=== PATIENT | female | born 1970 | race Caucasian/White ===

== ENCOUNTER 2017-07-11 10:44 | Emergency (ER) | payer OTHER ==
[~2017-07-11] VITALS: Ht 180.3 cm; Wt 68.0 kg
[~2017-07-11 10:44] MED LIST: ALBU90OI INH; CEPH500 PO; CODGUAEL PO; IBUP800 PO; Zithromax250 MG PO
[2017-07-11] MEDS ORDERED: IBUP600 PO (11:31)
[2017-07-11] MEDS ORDERED: Zithromax250 MG PO (11:31)
[2017-07-11] MEDS ORDERED: ALBU90OI INH (11:31)
[2017-07-11] MEDS ORDERED: METPRE4DP PO (11:31)
== END 2017-07-11 11:54 | disposition home or self-care (01) ==
LOC: ER 10:44
DX: J18.9 Pneumonia, unspecified organism (principal); F17.210 Nicotine dependence, cigarettes, uncomplicated
CPT/HCPCS: 71046; 94640; 99284

== ENCOUNTER 2017-12-15 21:02 | Emergency (ER) | payer OTHER ==
[~2017-12-15] VITALS: Ht 180.3 cm; Wt 72.6 kg
[~2017-12-15 21:02] MED LIST changes: +IBUP600 PO; +METPRE4DP PO
[2017-12-15 22:13] LABS: Influenza A Negative (NEGATIVE); Influenza B Negative (NEGATIVE)
[2017-12-15] MEDS ORDERED: Zithromax250 MG PO (22:20)
== END 2017-12-15 22:25 | disposition home or self-care (01) ==
LOC: ER 21:02
PROVIDERS: Physician Assistant
DX: J18.9 Pneumonia, unspecified organism (principal); Z79.899 Other long term (current) drug therapy; F17.210 Nicotine dependence, cigarettes, uncomplicated
CPT/HCPCS: 71046; 87804; 99283-25

== ENCOUNTER 2018-04-09 22:53 | Emergency (ER) | payer OTHER ==
[~2018-04-09] VITALS: Ht 180.3 cm; Wt 72.6 kg
== END 2018-04-10 02:48 | disposition home or self-care (01) ==
LOC: ER 22:53
DX: B35.3 Tinea pedis (principal); J06.9 Acute upper respiratory infection, unspecified; F17.210 Nicotine dependence, cigarettes, uncomplicated
CPT/HCPCS: 99283

== ENCOUNTER 2018-12-06 21:44 | Emergency (ER) | payer OTHER ==
[~2018-12-06] VITALS: Ht 162.6 cm; Wt 72.6 kg
[2018-12-06 23:32] LABS: Source, Urine Clean Catch
[2018-12-06 23:38] LABS: Bilirubin, Urine Neg (Neg); Blood, Urine 4+ (Neg); Glucose Qualitative, Urine Neg (Neg); Ketones, Urine Neg (Neg); Leukocyte Esterase, Urine 3+ (Neg); Nitrite, Urine Pos (Neg); Protein, Urine 3+ (Neg); Specific Gravity, Urine 1.025 (1.003-1.022); Urobilinogen, Urine NORM (Normal)
[2018-12-06 23:42] LABS: Appearance, Urine Hazy (Clear); Color, Urine Yellow (P-Yellow)
[2018-12-06] MEDS ORDERED: Bactrim Ds Tab1 EACH PO (23:46)
[2018-12-06 23:47] LABS: Bacteria Many /hpf; Red Blood Cells, Urine 0-2 /hpf (0-2); Squamous Epithelial Cells Few /hpf (Few); White Blood Cells, Urine TNTC /hpf (0-5)
== END 2018-12-07 00:06 | disposition home or self-care (01) ==
LOC: ER 21:44
PROVIDERS: Emergency Medicine
DX: B37.41 Candidal cystitis and urethritis (principal); N39.0 Urinary tract infection, site not specified; F17.200 Nicotine dependence, unspecified, uncomplicated
CPT/HCPCS: 81001; 87077; 87086; 87186; 99283

== ENCOUNTER 2019-01-14 00:15 | Emergency (ER) | payer OTHER ==
[~2019-01-14] VITALS: Ht 177.8 cm; Wt 74.8 kg
[~2019-01-14 00:15] MED LIST changes: +Bactrim Ds Tab1 EACH PO
== END 2019-01-14 03:55 | disposition left against medical advice (07) ==
LOC: ER 00:15
DX: Z53.21 Procedure and treatment not carried out due to patient leaving prior to being seen by health care provider (principal)

== ENCOUNTER 2020-08-22 11:32 | Emergency (ER) | payer OTHER ==
[~2020-08-22] VITALS: Ht 177.8 cm; Wt 63.5 kg
[2020-08-22] MEDS ORDERED: CLOBET30L TOP (12:10)
== END 2020-08-22 12:17 | disposition home or self-care (01) ==
LOC: ER 11:32
DX: B35.3 Tinea pedis (principal); I10 Essential (primary) hypertension; F17.200 Nicotine dependence, unspecified, uncomplicated
CPT/HCPCS: 99282

== ENCOUNTER → 2021-01-16 | Outpatient (CLI) | payer OTHER ==
[~2021-01-16] MED LIST changes: +CLOBET30L TOP
[2021-01-16 16:02] LABS: BASOPHILS ABSOLUTE AUTO 0.07 K/mm3 (0.00-0.23); BASOPHILS PERCENT AUTO 1 % (0-2); EOSINOPHILS ABSOLUTE AUTO 0.03 K/mm3 (0.00-0.68); EOSINOPHILS PERCENT AUTO 0 % (0-6); Hematocrit 47.4 % (33.0-51.0); Hemoglobin 16.2 g/dL (11.5-16.0); IMMATURE GRAN ABSOLUTE AUTO 0.04 K/mm3 (0.00-0.10); IMMATURE GRAN PERCENT AUTO 1 % (0-1); LYMPHOCYTES ABSOLUTE AUTO 1.73 K/mm3 (0.84-5.20); LYMPHOCYTES PERCENT AUTO 22 % (21-46); MONOCYTES ABSOLUTE AUTO 0.66 K/mm3 (0.16-1.47); MONOCYTES PERCENT AUTO 8 % (4-13); Mean Corpuscular HGB 32.7 pg (26.0-34.0); Mean Corpuscular HGB Conc 34.2 g/dL (31.5-36.5); Mean Corpuscular Volume 96 fL (80-100); Mean Platelet Volume 9.7 fL (9.1-12.4); NEUTROPHILS ABSOLUTE AUTO 5.46 K/mm3 (1.96-9.15); NEUTROPHILS PERCENT AUTO 68 % (41-73); Platelet Count 309 K/mm3 (150-400); RDW Coefficient Variation 13.8 % (11.7-14.2); RDW Standard Deviation 48.4 fL (35.1-46.3); Red Blood Cell Count 4.96 M/mm3 (3.80-5.20); White Blood Cell Count 7.99 K/mm3 (4.00-11.30)
[2021-01-16 16:11] LABS: Alanine Aminotransfer (ALT/SGP 48 U/L (12-78); Albumin, Blood 3.6 g/dL (3.4-5.0); Albumin/Globulin Ratio 0.9 (0.8-1.8); Alk Phos 156 U/L (40-126); Anion Gap 12 mmol/L (6-16); Aspartate Aminotrans (AST/SGOT 35 U/L (12-37); Bilirubin, Total 1.3 mg/dL (0.1-1.0); Blood Urea Nitrogen 18 mg/dL (8-24); CO2, Blood 27 mmol/L (21-32); Chloride, Blood 102 mmol/L (98-108); Globulin, Blood 3.8 g/dL (2.2-4.0); Glomerular Filtration Rate >60 (60-); Glucose, Blood 112 mg/dL (70-99); Potassium, Blood 3.6 mmol/L (3.5-5.5); Sodium, Blood 141 mmol/L (136-145); Total Protein, Blood 7.4 g/dL (6.4-8.2)
== END | disposition home or self-care (01) ==
LOC: LAB SHORT 15:54 → LAB 15:54
PROVIDERS: Physician Assistant
DX: M25.561 Pain in right knee (principal)
CPT/HCPCS: 80053; 85025

== ENCOUNTER 2021-01-27 23:26 | Emergency (ER) | payer OTHER ==
[~2021-01-27] VITALS: Ht 180.3 cm; Wt 72.6 kg
[2021-01-27] MEDS ORDERED: Lisinopril2.5 MG (23:40)
[2021-01-27] MEDS ORDERED: potassium chloride E (23:40)
[2021-01-27] MEDS ORDERED: FUROSEMIDE20 MG PO (23:40)
[2021-01-27] MEDS ORDERED: Cholecalciferol1 GM MC (23:41)
[2021-01-28 00:17] LABS: BASOPHILS ABSOLUTE AUTO 0.08 K/mm3 (0.00-0.23); BASOPHILS PERCENT AUTO 1 % (0-2); EOSINOPHILS ABSOLUTE AUTO 0.04 K/mm3 (0.00-0.68); EOSINOPHILS PERCENT AUTO 1 % (0-6); Hematocrit 46.6 % (33.0-51.0); Hemoglobin 15.4 g/dL (11.5-16.0); IMMATURE GRAN ABSOLUTE AUTO 0.03 K/mm3 (0.00-0.10); IMMATURE GRAN PERCENT AUTO 0 % (0-1); LYMPHOCYTES ABSOLUTE AUTO 2.09 K/mm3 (0.84-5.20); LYMPHOCYTES PERCENT AUTO 25 % (21-46); MONOCYTES ABSOLUTE AUTO 0.78 K/mm3 (0.16-1.47); MONOCYTES PERCENT AUTO 9 % (4-13); Mean Corpuscular HGB 32.1 pg (26.0-34.0); Mean Corpuscular Volume 97 fL (80-100); Mean Platelet Volume 9.3 fL (9.1-12.4); NEUTROPHILS PERCENT AUTO 65 % (41-73); Platelet Count 306 K/mm3 (150-400); RDW Coefficient Variation 13.5 % (11.7-14.2); RDW Standard Deviation 48.7 fL (35.1-46.3); White Blood Cell Count 8.52 K/mm3 (4.00-11.30)
[2021-01-28 00:44] LABS: Alanine Aminotransfer (ALT/SGP 42 U/L (12-78); Albumin, Blood 3.2 g/dL (3.4-5.0); Albumin/Globulin Ratio 0.8 (0.8-1.8); Alk Phos 154 U/L (50-136); Anion Gap 4 mmol/L (6-16); Aspartate Aminotrans (AST/SGOT 33 U/L (12-37); Beta HCG, Quantitative, Serum <1 mIU/mL (0-3); Bilirubin, Total 0.9 mg/dL (0.1-1.0); Blood Urea Nitrogen 19 mg/dL (8-24); Bun/Creatinine Ratio 26.9 (12.0-20.0); CO2, Blood 24 mmol/L (21-32); Chloride, Blood 111 mmol/L (98-108); Creatinine, Blood 0.71 mg/dL (0.40-1.00); Glomerular Filtration Rate >60 (60-); Glucose, Blood 125 mg/dL (70-99); Potassium, Blood 3.9 mmol/L (3.5-5.5); Sodium, Blood 139 mmol/L (136-145); Total Protein, Blood 7.2 g/dL (6.4-8.2); Troponin I <0.015 ng/mL (0.000-0.040)
[2021-01-28] MEDS ORDERED: ACETAMINOPHEN500 MG PO (01:10)
[2021-01-28] MEDS ORDERED: CEPH500 PO (01:10)
== END 2021-01-28 01:50 | disposition home or self-care (01) ==
LOC: ER 23:26
PROVIDERS: Emergency Medicine
DX: M71.161 Other infective bursitis, right knee (principal); B96.89 Other specified bacterial agents as the cause of diseases classified elsewhere; I51.7 Cardiomegaly; I10 Essential (primary) hypertension; F17.210 Nicotine dependence, cigarettes, uncomplicated; Z79.899 Other long term (current) drug therapy
CPT/HCPCS: 29505; 36415; 71046; 73562-RT; 76882; 80053; 83880; 84484; 84702; 85025; 93005; 93010; 99284-25; A9270

== ENCOUNTER 2021-03-21 18:51 | Emergency (ER) | payer OTHER ==
[~2021-03-21] VITALS: Ht 180.3 cm; Wt 74.8 kg
[~2021-03-21 18:51] MED LIST changes: +ACETAMINOPHEN500 MG PO; +Cholecalciferol1 GM MC; +FUROSEMIDE20 MG PO; +Lisinopril2.5 MG; +potassium chloride E
[2021-03-21 19:19] LABS: BASOPHILS ABSOLUTE AUTO 0.06 K/mm3 (0.00-0.23); BASOPHILS PERCENT AUTO 1 % (0-2); EOSINOPHILS ABSOLUTE AUTO 0.03 K/mm3 (0.00-0.68); EOSINOPHILS PERCENT AUTO 0 % (0-6); Hematocrit 48.6 % (33.0-51.0); Hemoglobin 16.1 g/dL (11.5-16.0); IMMATURE GRAN ABSOLUTE AUTO 0.02 K/mm3 (0.00-0.10); IMMATURE GRAN PERCENT AUTO 0 % (0-1); LYMPHOCYTES PERCENT AUTO 20 % (21-46); MONOCYTES ABSOLUTE AUTO 0.68 K/mm3 (0.16-1.47); MONOCYTES PERCENT AUTO 7 % (4-13); Mean Corpuscular HGB 32.4 pg (26.0-34.0); Mean Corpuscular HGB Conc 33.1 g/dL (31.5-36.5); Mean Corpuscular Volume 98 fL (80-100); Mean Platelet Volume 9.5 fL (9.1-12.4); NEUTROPHILS ABSOLUTE AUTO 6.62 K/mm3 (1.96-9.15); NEUTROPHILS PERCENT AUTO 72 % (41-73); Platelet Count 301 K/mm3 (150-400); RDW Coefficient Variation 13.9 % (11.7-14.2); RDW Standard Deviation 50.3 fL (35.1-46.3); Red Blood Cell Count 4.97 M/mm3 (3.80-5.20); White Blood Cell Count 9.21 K/mm3 (4.00-11.30)
[2021-03-21 19:40] LABS: Alanine Aminotransfer (ALT/SGP 52 U/L (12-78); Albumin, Blood 3.3 g/dL (3.4-5.0); Albumin/Globulin Ratio 0.8 (0.8-1.8); Alk Phos 156 U/L (50-136); Anion Gap 4 mmol/L (6-16); Aspartate Aminotrans (AST/SGOT 50 U/L (12-37); Bilirubin, Total 1.3 mg/dL (0.1-1.0); Blood Urea Nitrogen 17 mg/dL (8-24); Bun/Creatinine Ratio 24.7 (12.0-20.0); CO2, Blood 24 mmol/L (21-32); Calcium, Blood 8.9 mg/dL (8.5-10.1); Chloride, Blood 111 mmol/L (98-108); Creatinine, Blood 0.69 mg/dL (0.40-1.00); Glomerular Filtration Rate >60 (60-); Glucose, Blood 122 mg/dL (70-99); Potassium, Blood 3.9 mmol/L (3.5-5.5); Sodium, Blood 139 mmol/L (136-145); Total Protein, Blood 7.3 g/dL (6.4-8.2)
== END 2021-03-21 20:11 | disposition home or self-care (01) ==
LOC: ER 18:51
PROVIDERS: Physician Assistant
DX: S81.011A Laceration without foreign body, right knee, initial encounter (principal); M54.9 Dorsalgia, unspecified; I11.0 Hypertensive heart disease with heart failure; I50.9 Heart failure, unspecified; F17.210 Nicotine dependence, cigarettes, uncomplicated; Z79.899 Other long term (current) drug therapy; V49.40XA Driver injured in collision with unspecified motor vehicles in traffic accident, initial encounter
CPT/HCPCS: 80053; 85025; 99284

== ENCOUNTER 2021-06-12 11:20 | Emergency (ER) | payer OTHER ==
[~2021-06-12] VITALS: Ht 180.3 cm; Wt 68.0 kg
[~2021-06-12 11:20] MED LIST changes: -Cholecalciferol1 GM MC; +KLOR-CON 1010 ME8 PO; -Lisinopril2.5 MG; +Prinivil10 MG PO; +VITAMIN D5000 UNIT PO; -potassium chloride E
[2021-06-12] MEDS ORDERED: Indomethacin50 MG PO (11:45)
== END 2021-06-12 12:06 | disposition home or self-care (01) ==
LOC: ER 11:20
DX: M10.9 Gout, unspecified (principal); I11.0 Hypertensive heart disease with heart failure; I50.9 Heart failure, unspecified; Z79.899 Other long term (current) drug therapy; F17.210 Nicotine dependence, cigarettes, uncomplicated
CPT/HCPCS: 99283; A9270

== ENCOUNTER 2021-07-23 02:22 | Emergency (ER) | payer OTHER ==
[~2021-07-23] VITALS: Ht 180.3 cm; Wt 72.6 kg
[~2021-07-23 02:22] MED LIST changes: +Cholecalciferol1 GM MC; +Indomethacin50 MG PO; -KLOR-CON 1010 ME8 PO; +Lisinopril2.5 MG; -Prinivil10 MG PO; -VITAMIN D5000 UNIT PO; +potassium chloride E
[2021-07-23] MEDS ORDERED: PRED20 PO (05:25)
[2021-07-23] MEDS ORDERED: COLCHICINE0.6 MG PO (05:25)
[2021-07-23] MEDS ORDERED: INDO50 PO (05:25)
== END 2021-07-23 05:38 | disposition home or self-care (01) ==
LOC: ER 02:22
DX: M79.674 Pain in right toe(s) (principal); I10 Essential (primary) hypertension; Z79.899 Other long term (current) drug therapy; F17.210 Nicotine dependence, cigarettes, uncomplicated
CPT/HCPCS: 96372; 99283-25; A9270; J1170; J7512

== ENCOUNTER 2021-08-11 08:16 | Emergency (ER) | payer OTHER ==
[~2021-08-11] VITALS: Ht 177.8 cm; Wt 72.6 kg
[~2021-08-11 08:16] MED LIST changes: +COLCHICINE0.6 MG PO; +INDO50 PO; +PRED20 PO
[2021-08-11] MEDS ORDERED: COLCHICINE0.6 MG PO (10:05)
[2021-08-11] MEDS ORDERED: PRED20 PO (10:05)
[2021-08-11] MEDS ORDERED: INDO50 PO (10:06)
== END 2021-08-11 10:34 | disposition home or self-care (01) ==
LOC: ER 08:16
DX: M10.9 Gout, unspecified (principal); I11.9 Hypertensive heart disease without heart failure; F17.210 Nicotine dependence, cigarettes, uncomplicated; Z79.899 Other long term (current) drug therapy
CPT/HCPCS: A9270; J7512

== ENCOUNTER 2021-12-01 23:01 | Inpatient (IN) | payer OTHER ==
[~2021-12-01] VITALS: Ht 180.3 cm; Wt 55.3 kg
[~2021-12-01 23:01] MED LIST changes: -Cholecalciferol1 GM MC; +KLOR-CON 1010 ME8 PO; -Lisinopril2.5 MG; +Prinivil10 MG PO; +VITAMIN D5000 UNIT PO; -potassium chloride E
[2021-12-02 00:39] LABS: BASOPHILS ABSOLUTE AUTO 0.06 K/mm3 (0.00-0.23); BASOPHILS PERCENT AUTO 1 % (0-2); EOSINOPHILS ABSOLUTE AUTO 0.04 K/mm3 (0.00-0.68); EOSINOPHILS PERCENT AUTO 1 % (0-6); Hematocrit 41.4 % (33.0-51.0); Hemoglobin 13.8 g/dL (11.5-16.0); IMMATURE GRAN ABSOLUTE AUTO 0.03 K/mm3 (0.00-0.10); IMMATURE GRAN PERCENT AUTO 0 % (0-1); LYMPHOCYTES ABSOLUTE AUTO 1.51 K/mm3 (0.84-5.20); LYMPHOCYTES PERCENT AUTO 20 % (21-46); MONOCYTES ABSOLUTE AUTO 0.68 K/mm3 (0.16-1.47); MONOCYTES PERCENT AUTO 9 % (4-13); Mean Corpuscular HGB 32.9 pg (26.0-34.0); Mean Corpuscular HGB Conc 33.3 g/dL (31.5-36.5); Mean Corpuscular Volume 99 fL (80-100); Mean Platelet Volume 9.4 fL (9.1-12.4); NEUTROPHILS ABSOLUTE AUTO 5.08 K/mm3 (1.96-9.15); NEUTROPHILS PERCENT AUTO 69 % (41-73); Platelet Count 333 K/mm3 (150-400); RDW Coefficient Variation 14.8 % (11.7-14.2); Red Blood Cell Count 4.19 M/mm3 (3.80-5.20)
[2021-12-02] MEDS ORDERED: ALLOPURINOL100 M1 PO (01:08)
[2021-12-02] MEDS ORDERED: STIOLTO RESPIMAT4 G1 INH (01:09)
[2021-12-02 01:12] LABS: Albumin, Blood 3.5 g/dL (3.4-5.0); Bilirubin, Total 1.1 mg/dL (0.1-1.0); Bun/Creatinine Ratio 20.5 (12.0-20.0); Calcium, Blood 8.2 mg/dL (8.5-10.1); Creatinine, Blood 0.68 mg/dL (0.40-1.00); Globulin, Blood 3.4 g/dL (2.2-4.0); Potassium, Blood 3.4 mmol/L (3.5-5.5); Total Protein, Blood 6.9 g/dL (6.4-8.2)
[2021-12-02 02:07] LABS: Thyroid Stimulating Hormone 4.52 uIU/mL (0.360-4.800)
[2021-12-02] MEDS ORDERED: CILO100 PO (05:57)
[2021-12-02] MEDS ORDERED: Ventolin/Prove6.7 GM INH (05:57)
[2021-12-02 14:32] LABS: Candida species (DNA Probe) Negative (NEGATIVE); G. vaginalis (DNA Probe) Positive (NEGATIVE); T. vaginalis (DNA Probe) Negative (NEGATIVE)
[2021-12-03 06:30] LABS: Albumin, Blood 3.4 g/dL (3.4-5.0); Anion Gap 2 mmol/L (6-16); Blood Urea Nitrogen 14 mg/dL (8-24); Bun/Creatinine Ratio 19.7 (12.0-20.0); CO2, Blood 29 mmol/L (21-32); Chloride, Blood 107 mmol/L (98-108); Creatinine, Blood 0.71 mg/dL (0.40-1.00); Glomerular Filtration Rate 102 (60-); Glucose, Blood 105 mg/dL (70-99); Phosphorus, Blood 3.1 mg/dL (2.5-4.9); Potassium, Blood 4.1 mmol/L (3.5-5.5); Sodium, Blood 138 mmol/L (136-145)
[2021-12-03 16:38] LABS: SARS-Cov-2 (COVID-19) PCR, MMC NEGATIVE (NEGATIVE)
== END 2021-12-03 17:43 | disposition short-term general hospital (02) | DRG 291 ==
LOC: ER 23:01 → MEDS 12-02 04:28 → PCU 12-02 22:00
PROVIDERS: Internal Medicine; Internal Medicine Cardiovascular Disease; Student in an Organized Health Care Education/Training Program; ADMIT Family Medicine
DX: I11.0 Hypertensive heart disease with heart failure (principal); I33.0 Acute and subacute infective endocarditis; J96.01 Acute respiratory failure with hypoxia; I50.9 Heart failure, unspecified; F19.10 Other psychoactive substance abuse, uncomplicated; J44.9 Chronic obstructive pulmonary disease, unspecified; R77.8 Other specified abnormalities of plasma proteins; E87.6 Hypokalemia; I27.21 Secondary pulmonary arterial hypertension; I05.2 Rheumatic mitral stenosis with insufficiency; N76.0 Acute vaginitis; F15.10 Other stimulant abuse, uncomplicated; F12.10 Cannabis abuse, uncomplicated; Z20.822 Contact with and (suspected) exposure to COVID-19; M10.9 Gout, unspecified; Z79.899 Other long term (current) drug therapy; Z79.811 Long term (current) use of aromatase inhibitors; Z79.01 Long term (current) use of anticoagulants; Z87.891 Personal history of nicotine dependence; Z79.51 Long term (current) use of inhaled steroids
CPT/HCPCS: 36415; 71046; 80053; 80069; 83880; 84443; 84484; 85025; 87040; 87480; 87510; 87660; 93005; 93010; 93306; 96374; 99285-25; A9270; G0378; J1650; J1940; U0004

== ENCOUNTER 2022-01-08 19:27 | Emergency (ER) | payer OTHER ==
[~2022-01-08] VITALS: Ht 180.3 cm; Wt 58.1 kg
[~2022-01-08 19:27] MED LIST changes: +ALLOPURINOL100 M1 PO; +CILO100 PO; +STIOLTO RESPIMAT4 G1 INH; +Ventolin/Prove6.7 GM INH
[2022-01-08 19:53] LABS: BASOPHILS ABSOLUTE AUTO 0.06 K/mm3 (0.00-0.23); BASOPHILS PERCENT AUTO 1 % (0-2); EOSINOPHILS ABSOLUTE AUTO 0.02 K/mm3 (0.00-0.68); EOSINOPHILS PERCENT AUTO 0 % (0-6); Hematocrit 40.8 % (33.0-51.0); Hemoglobin 13.8 g/dL (11.5-16.0); IMMATURE GRAN ABSOLUTE AUTO 0.02 K/mm3 (0.00-0.10); IMMATURE GRAN PERCENT AUTO 0 % (0-1); LYMPHOCYTES ABSOLUTE AUTO 1.42 K/mm3 (0.84-5.20); LYMPHOCYTES PERCENT AUTO 15 % (21-46); MONOCYTES ABSOLUTE AUTO 0.84 K/mm3 (0.16-1.47); MONOCYTES PERCENT AUTO 9 % (4-13); Mean Corpuscular HGB Conc 33.8 g/dL (31.5-36.5); Mean Corpuscular Volume 98 fL (80-100); Mean Platelet Volume 9.5 fL (9.1-12.4); NEUTROPHILS ABSOLUTE AUTO 7.11 K/mm3 (1.96-9.15); NEUTROPHILS PERCENT AUTO 75 % (41-73); Platelet Count 329 K/mm3 (150-400); RDW Coefficient Variation 12.9 % (11.7-14.2); RDW Standard Deviation 46.1 fL (35.1-46.3); Red Blood Cell Count 4.18 M/mm3 (3.80-5.20); White Blood Cell Count 9.47 K/mm3 (4.00-11.30)
[2022-01-08 20:12] LABS: Albumin, Blood 3.9 g/dL (3.4-5.0); Albumin/Globulin Ratio 1.1 (0.8-1.8); Bilirubin, Total 0.9 mg/dL (0.1-1.0); Calcium, Blood 8.9 mg/dL (8.5-10.1); Creatinine, Blood 0.53 mg/dL (0.40-1.00); Globulin, Blood 3.4 g/dL (2.2-4.0); Potassium, Blood 3.7 mmol/L (3.5-5.5); Total Protein, Blood 7.3 g/dL (6.4-8.2)
== END 2022-01-08 22:10 | disposition home or self-care (01) ==
LOC: ER 19:27
PROVIDERS: Student in an Organized Health Care Education/Training Program
DX: I27.20 Pulmonary hypertension, unspecified (principal); R06.00 Dyspnea, unspecified; M79.89 Other specified soft tissue disorders; I50.9 Heart failure, unspecified; Z87.891 Personal history of nicotine dependence; Z79.899 Other long term (current) drug therapy
CPT/HCPCS: 36415; 71046; 80053; 83880; 84484; 85025; 93005; 93010; 99285-25

== ENCOUNTER 2022-01-20 22:47 | Observation (INO) | payer OTHER ==
[~2022-01-20] VITALS: Ht 177.8 cm; Wt 59.0 kg
[2022-01-20 23:43] LABS: BASOPHILS ABSOLUTE AUTO 0.04 K/mm3 (0.00-0.23); BASOPHILS PERCENT AUTO 1 % (0-2); EOSINOPHILS ABSOLUTE AUTO 0.03 K/mm3 (0.00-0.68); EOSINOPHILS PERCENT AUTO 0 % (0-6); Hematocrit 37.9 % (33.0-51.0); IMMATURE GRAN ABSOLUTE AUTO 0.02 K/mm3 (0.00-0.10); IMMATURE GRAN PERCENT AUTO 0 % (0-1); LYMPHOCYTES ABSOLUTE AUTO 1.38 K/mm3 (0.84-5.20); LYMPHOCYTES PERCENT AUTO 18 % (21-46); MONOCYTES ABSOLUTE AUTO 0.71 K/mm3 (0.16-1.47); MONOCYTES PERCENT AUTO 9 % (4-13); Mean Corpuscular HGB Conc 34.3 g/dL (31.5-36.5); Mean Corpuscular Volume 96 fL (80-100); Mean Platelet Volume 9.3 fL (9.1-12.4); NEUTROPHILS ABSOLUTE AUTO 5.53 K/mm3 (1.96-9.15); NEUTROPHILS PERCENT AUTO 72 % (41-73); Platelet Count 378 K/mm3 (150-400); RDW Coefficient Variation 12.9 % (11.7-14.2); RDW Standard Deviation 45.7 fL (35.1-46.3); Red Blood Cell Count 3.94 M/mm3 (3.80-5.20); White Blood Cell Count 7.71 K/mm3 (4.00-11.30)
[2022-01-21 00:03] LABS: Albumin, Blood 3.4 g/dL (3.4-5.0); Albumin/Globulin Ratio 1.1 (0.8-1.8); Bilirubin, Total 0.8 mg/dL (0.1-1.0); Bun/Creatinine Ratio 31.6 (12.0-20.0); Calcium, Blood 8.7 mg/dL (8.5-10.1); Creatinine, Blood 0.51 mg/dL (0.40-1.00); Globulin, Blood 3.2 g/dL (2.2-4.0); Potassium, Blood 3.7 mmol/L (3.5-5.5); Total Protein, Blood 6.6 g/dL (6.4-8.2)
[2022-01-21 01:04] LABS: Influenza A, PCR NEGATIVE (NEGATIVE); Influenza B, PCR NEGATIVE (NEGATIVE); Resp Syncytial Virus, PCR NEGATIVE (NEGATIVE); SARS-Cov-2 (COVID-19) PCR, MMC NEGATIVE (NEGATIVE)
[2022-01-21 05:14] LABS: BASOPHILS ABSOLUTE AUTO 0.03 K/mm3 (0.00-0.23); BASOPHILS PERCENT AUTO 1 % (0-2); EOSINOPHILS ABSOLUTE AUTO 0.02 K/mm3 (0.00-0.68); EOSINOPHILS PERCENT AUTO 0 % (0-6); Hematocrit 35.8 % (33.0-51.0); Hemoglobin 12.3 g/dL (11.5-16.0); IMMATURE GRAN ABSOLUTE AUTO 0.01 K/mm3 (0.00-0.10); IMMATURE GRAN PERCENT AUTO 0 % (0-1); LYMPHOCYTES ABSOLUTE AUTO 1.05 K/mm3 (0.84-5.20); LYMPHOCYTES PERCENT AUTO 17 % (21-46); MONOCYTES ABSOLUTE AUTO 0.56 K/mm3 (0.16-1.47); MONOCYTES PERCENT AUTO 9 % (4-13); Mean Corpuscular HGB 32.9 pg (26.0-34.0); Mean Corpuscular HGB Conc 34.4 g/dL (31.5-36.5); Mean Corpuscular Volume 96 fL (80-100); Mean Platelet Volume 10.3 fL (9.1-12.4); NEUTROPHILS ABSOLUTE AUTO 4.66 K/mm3 (1.96-9.15); NEUTROPHILS PERCENT AUTO 74 % (41-73); Platelet Count 368 K/mm3 (150-400); RDW Coefficient Variation 12.9 % (11.7-14.2); RDW Standard Deviation 45.8 fL (35.1-46.3); Red Blood Cell Count 3.74 M/mm3 (3.80-5.20); White Blood Cell Count 6.33 K/mm3 (4.00-11.30)
[2022-01-21 05:43] LABS: Calcium, Blood 8.9 mg/dL (8.5-10.1); Creatinine, Blood 0.56 mg/dL (0.40-1.00); Potassium, Blood 3.7 mmol/L (3.5-5.5)
--- NOTE | 2022-01-21 05:57 | NUR ---
ADMISSION NOTE PATIENT ARIVED TO FLOOR AT 0300. VSS. PT. AOX4, O2 NC 2L 94%. PT DENIES PAIN, GREGG, OR NAUSEA. PT REPORTS THAT SHE NO LONGER HAS THE "PRESSURE" SHE FELT IN STERNAL AREA/RIBS UPON ADMISSION. BM 01/20/22 AM PRIOR TO ADMISSION. INDEPENDENT TO BR TO VOID CYU. SKIN INTACT. PT EATING AND DRINKING. ORIENTED PT TO ROOM AND USE OF CALL LIGHT. PROVIDED WARM BLANKET, SNACKS, AND WATER.
--- NOTE | 2022-01-21 06:03 | NUR ---
PATIENT HOME MEDICATION AMBRISENTAN IS NONFORMULARY. PT HAS CONTACTED HER TO BRING MEDICATION TO HOSPITAL IN MORNING IF POSSIBLE.
--- NOTE | 2022-01-21 08:10 | NUR ---
BLOOD PRESSURE THIS RN CALLED DR. SANTOS AND DISCUSSED PT'S BLOOD PRESSURE AND THE SCHEDULED MEDICATIONS ORDERED TO BE GIVEN. PT'S BP 90/73 HR 81, PT REPORTS THIS IS A NORMAL BLOOD PRESSURE FOR HER. THIS RN TALKED WITH DR. SANTOS ABOUT THIS BEING NORMAL PER PT. ORDERS TO DECREASE LASIX TO 20 MG PO BIDD AT THIS TIME AND TO ADMINISTER ALL OF PT'S SCHEDULED MEDICATIONS.
--- NOTE | 2022-01-21 11:47 | NUR ---
02 SATURATION PT'S OXYGEN SATURATION 94% WHILE SITTING AND INCREASES TO 96-98% WHILE AMBULATING IN THE HALLWAY. NO C/O SHORTNESS OF BREATH.
[2022-01-21] MEDS ORDERED: K-Dur10 MEQ PO (12:39)
[2022-01-21] MEDS ORDERED: SILDENAFIL CITR20 MG PO (12:39)
[2022-01-21] MEDS ORDERED: AMBRISENTAN PO (12:41)
--- NOTE | 2022-01-21 14:59 | NUR ---
DISCHARGE PT DISCHARGED TO HOME. THIS RN EXPLAINED DISCHARGE INSTRUCTIONS AND MEDICATIONS TO PT AND SHE REPORTS SHE UNDERSTANDS. IV REMOVED WITH CATHETER INTACT. PT'S BELONGINGS WITH PT. PT INDEPENDENT TO PRIVATE VEHICLE.
== END 2022-01-21 14:59 | disposition home or self-care (01) ==
LOC: ER 22:47 → MEDS 22:48
PROVIDERS: Emergency Medicine; Family Medicine; ADMIT Internal Medicine
DX: I11.0 Hypertensive heart disease with heart failure (principal); I50.9 Heart failure, unspecified; I25.2 Old myocardial infarction; I27.20 Pulmonary hypertension, unspecified; I73.9 Peripheral vascular disease, unspecified; I33.0 Acute and subacute infective endocarditis; F15.90 Other stimulant use, unspecified, uncomplicated; Z20.822 Contact with and (suspected) exposure to COVID-19
CPT/HCPCS: 0241U; 36415; 71045; 80048; 80053; 83880; 84484; 85025; 93005; 93010; 94760; A9270; G0378; J1940

== ENCOUNTER 2022-02-09 09:36 | Observation (INO) | payer OTHER ==
[~2022-02-09] VITALS: Ht 180.3 cm; Wt 59.6 kg
[~2022-02-09 09:36] MED LIST changes: +AMBRISENTAN PO; +K-Dur10 MEQ PO; +SILDENAFIL CITR20 MG PO
[2022-02-09 10:52] LABS: BASOPHILS ABSOLUTE AUTO 0.06 K/mm3 (0.00-0.23); BASOPHILS PERCENT AUTO 1 % (0-2); EOSINOPHILS ABSOLUTE AUTO 0.02 K/mm3 (0.00-0.68); EOSINOPHILS PERCENT AUTO 0 % (0-6); Hematocrit 32.4 % (33.0-51.0); Hemoglobin 10.9 g/dL (11.5-16.0); IMMATURE GRAN ABSOLUTE AUTO 0.03 K/mm3 (0.00-0.10); IMMATURE GRAN PERCENT AUTO 0 % (0-1); LYMPHOCYTES ABSOLUTE AUTO 1.41 K/mm3 (0.84-5.20); LYMPHOCYTES PERCENT AUTO 21 % (21-46); MONOCYTES ABSOLUTE AUTO 0.68 K/mm3 (0.16-1.47); MONOCYTES PERCENT AUTO 10 % (4-13); Mean Corpuscular HGB 32.4 pg (26.0-34.0); Mean Corpuscular HGB Conc 33.6 g/dL (31.5-36.5); Mean Corpuscular Volume 96 fL (80-100); Mean Platelet Volume 9.3 fL (9.1-12.4); NEUTROPHILS ABSOLUTE AUTO 4.52 K/mm3 (1.96-9.15); NEUTROPHILS PERCENT AUTO 67 % (41-73); Platelet Count 402 K/mm3 (150-400); RDW Coefficient Variation 12.8 % (11.7-14.2); RDW Standard Deviation 45.1 fL (35.1-46.3); Red Blood Cell Count 3.36 M/mm3 (3.80-5.20); White Blood Cell Count 6.72 K/mm3 (4.00-11.30)
[2022-02-09 11:15] LABS: Albumin, Blood 3.3 g/dL (3.4-5.0); Bilirubin, Total 0.7 mg/dL (0.1-1.0); Bun/Creatinine Ratio 38.4 (12.0-20.0); Calcium, Blood 8.6 mg/dL (8.5-10.1); Creatinine, Blood 0.65 mg/dL (0.40-1.00); Globulin, Blood 3.2 g/dL (2.2-4.0); Potassium, Blood 3.7 mmol/L (3.5-5.5); Total Protein, Blood 6.5 g/dL (6.4-8.2)
[2022-02-09 12:55] LABS: Digoxin (Lanoxin) 0.75 ug/mL (0.80-2.00)
[2022-02-09] MEDS ORDERED: LETAIRIS PO (14:06)
[2022-02-09] MEDS ORDERED: REVATIO20 MG PO (14:07)
[2022-02-09] MEDS ORDERED: DIGOX125 MC1 PO (15:05)
[2022-02-09 16:01] LABS: U Amphetamine Screen Not Detected; U Barbituate Screen Not Detected; U Benzodiazapine Screen Not Detected; U Buprenorphine Screen Not Detected; U Cannabinoids Screen Not Detected; U Cocaine Screen Not Detected; U Methadone Screen Not Detected; U Methamphetamine Screen Not Detected; U Opiates Screen Not Detected; U Oxycodone Screen Not Detected; U Phencyclidine Screen Not Detected; U Propoxyphene Screen Not Detected
--- NOTE | 2022-02-09 18:43 | NUR ---
PCU ADMIT / END OF SHIFT NOTE PT BROUGHT TO PCU-10 BY RACHEL FROM ER @ 1515. PT A&O X4. ABLE TO INDEPENDENTLY AMBULATE FROM [facility] TO U BED. PT SMILING UPON ENTRY RM, STATING "I FEEL SO MUCH BETTER NOW." BP SOFT W/ PT STATING "MY BP IS ALWAYS IN THE 90s." PT DENIES CP/DISCOMFORT OR ANY OTHER PAIN/DISCOMFORT. PT DENIES LIGHTHEADEDNESS/DIZZINESS. SPO2 > 92% ON RA. MONITOR SHOWING SR, HR 90s.
--- NOTE | 2022-02-10 06:38 | NUR ---
CONTINUITY PERSON SUMMARY ASSUMED CARE OF PT AT 1900. SHE IS ALERT AND ORIENTED X4, INDEPENDENT IN THE ROOM. PT DENIES ANY CHEST PAIN THROUGHOUT THE SHIFT. SHE HAS HAD LOW BP THROUGHOUT THE SHIFT, MAP REMAINING >65 AND PT IS ASYMPTOMATIC, REPORTING THAT SHE HAS A HISTORY OF LOWER BP. LUNG SOUNDS CLEAR. PT COOPERATIVE BUT APPEARS SLIGHTLY ANXIOUS AT TIMES. SHE DID HAVE A SHORT PERIOD OF ST DEPRESSION IN LEADS III AND AVF - PT ASYMPTOMATIC AND IT RESOLVED. TROPONINS TRENDING DOWN. SHE IS ON RA. NO COMPLAINTS AT THIS TIME.
[2022-02-10 06:44] LABS: Bun/Creatinine Ratio 44.1 (12.0-20.0); Calcium, Blood 8.4 mg/dL (8.5-10.1); Creatinine, Blood 0.77 mg/dL (0.40-1.00); Potassium, Blood 4.2 mmol/L (3.5-5.5)
--- NOTE | 2022-02-10 13:13 | NUR ---
DISCHARGE NOTE NO ACUTE EVENTS THIS SHIFT, VSS. PT DENIES CHEST PAIN/PRESSURE. PT ABLE TO AMBULATE INDEPENDENTLY IN ROOM. DISCHARGE INFO PROVIDED TO PT AND PT'S SPOUSE REGARDING FOLLOW UP PLANS, MEDICATION INFORMATION, AND REASONS TO RETURN TO THE HOSPITAL. PT ENDORSED UNDERSTANDING. PT'S SPOUSE TO PROVIDE RIDE HOME IN PRIVATE VEHICLE.
[2022-02-11] MEDS ORDERED: IBU800 M1 PO (03:42)
== END 2022-02-10 12:30 | disposition home or self-care (01) ==
LOC: ER 09:36 → PCU 09:37
PROVIDERS: Emergency Medicine; Nurse Practitioner Acute Care; Physician Assistant; ADMIT Internal Medicine
DX: I11.0 Hypertensive heart disease with heart failure (principal); I50.33 Acute on chronic diastolic (congestive) heart failure; I50.812 Chronic right heart failure; I27.20 Pulmonary hypertension, unspecified; I05.2 Rheumatic mitral stenosis with insufficiency; I07.1 Rheumatic tricuspid insufficiency; I25.2 Old myocardial infarction; M10.9 Gout, unspecified; F15.11 Other stimulant abuse, in remission; I73.9 Peripheral vascular disease, unspecified; I24.8 Other forms of acute ischemic heart disease; J44.9 Chronic obstructive pulmonary disease, unspecified; Z87.891 Personal history of nicotine dependence
CPT/HCPCS: 36415; 71045; 80048; 80053; 80162; 83690; 83880; 84484; 85025; 93005; 93010; 94640; 94664; 94760; A9270; J1650; J1885; J1940; J2405

== ENCOUNTER 2022-02-10 23:04 | Observation (INO) | payer OTHER ==
[~2022-02-10] VITALS: Ht 180.3 cm; Wt 57.9 kg
[~2022-02-10 23:04] MED LIST changes: +DIGOX125 MC1 PO; +LETAIRIS PO; +REVATIO20 MG PO
[2022-02-11 00:23] LABS: BASOPHILS ABSOLUTE AUTO 0.05 K/mm3 (0.00-0.23); BASOPHILS PERCENT AUTO 1 % (0-2); EOSINOPHILS ABSOLUTE AUTO 0.08 K/mm3 (0.00-0.68); EOSINOPHILS PERCENT AUTO 1 % (0-6); Hematocrit 32.9 % (33.0-51.0); Hemoglobin 11.4 g/dL (11.5-16.0); IMMATURE GRAN ABSOLUTE AUTO 0.02 K/mm3 (0.00-0.10); IMMATURE GRAN PERCENT AUTO 0 % (0-1); LYMPHOCYTES ABSOLUTE AUTO 1.13 K/mm3 (0.84-5.20); LYMPHOCYTES PERCENT AUTO 17 % (21-46); MONOCYTES ABSOLUTE AUTO 0.56 K/mm3 (0.16-1.47); MONOCYTES PERCENT AUTO 9 % (4-13); Mean Corpuscular HGB 33.1 pg (26.0-34.0); Mean Corpuscular HGB Conc 34.7 g/dL (31.5-36.5); Mean Corpuscular Volume 96 fL (80-100); Mean Platelet Volume 9.3 fL (9.1-12.4); NEUTROPHILS ABSOLUTE AUTO 4.65 K/mm3 (1.96-9.15); NEUTROPHILS PERCENT AUTO 72 % (41-73); Platelet Count 390 K/mm3 (150-400); RDW Coefficient Variation 12.8 % (11.7-14.2); RDW Standard Deviation 44.8 fL (35.1-46.3); Red Blood Cell Count 3.44 M/mm3 (3.80-5.20); White Blood Cell Count 6.49 K/mm3 (4.00-11.30)
[2022-02-11 00:41] LABS: Albumin, Blood 3.5 g/dL (3.4-5.0); Bilirubin, Total 0.5 mg/dL (0.1-1.0); Bun/Creatinine Ratio 44.4 (12.0-20.0); Calcium, Blood 8.7 mg/dL (8.5-10.1); Creatinine, Blood 0.65 mg/dL (0.40-1.00); Globulin, Blood 3.5 g/dL (2.2-4.0); Potassium, Blood 3.7 mmol/L (3.5-5.5)
[2022-02-11] MEDS ORDERED: IBU800 M1 PO (03:42)
[2022-02-11 04:10] LABS: BASOPHILS ABSOLUTE AUTO 0.05 K/mm3 (0.00-0.23); BASOPHILS PERCENT AUTO 1 % (0-2); EOSINOPHILS ABSOLUTE AUTO 0.05 K/mm3 (0.00-0.68); EOSINOPHILS PERCENT AUTO 1 % (0-6); Hematocrit 31.9 % (33.0-51.0); Hemoglobin 10.5 g/dL (11.5-16.0); IMMATURE GRAN ABSOLUTE AUTO 0.01 K/mm3 (0.00-0.10); IMMATURE GRAN PERCENT AUTO 0 % (0-1); LYMPHOCYTES ABSOLUTE AUTO 1.09 K/mm3 (0.84-5.20); LYMPHOCYTES PERCENT AUTO 20 % (21-46); MONOCYTES ABSOLUTE AUTO 0.55 K/mm3 (0.16-1.47); MONOCYTES PERCENT AUTO 10 % (4-13); Mean Corpuscular HGB 31.5 pg (26.0-34.0); Mean Corpuscular HGB Conc 32.9 g/dL (31.5-36.5); Mean Corpuscular Volume 96 fL (80-100); Mean Platelet Volume 9.1 fL (9.1-12.4); NEUTROPHILS ABSOLUTE AUTO 3.79 K/mm3 (1.96-9.15); NEUTROPHILS PERCENT AUTO 68 % (41-73); Platelet Count 374 K/mm3 (150-400); RDW Coefficient Variation 12.8 % (11.7-14.2); RDW Standard Deviation 44.5 fL (35.1-46.3); Red Blood Cell Count 3.33 M/mm3 (3.80-5.20); White Blood Cell Count 5.54 K/mm3 (4.00-11.30)
[2022-02-11 04:29] LABS: Albumin, Blood 3.2 g/dL (3.4-5.0); Bilirubin, Total 0.6 mg/dL (0.1-1.0); Bun/Creatinine Ratio 43.7 (12.0-20.0); Calcium, Blood 8.3 mg/dL (8.5-10.1); Creatinine, Blood 0.57 mg/dL (0.40-1.00); Globulin, Blood 3.2 g/dL (2.2-4.0); Potassium, Blood 3.4 mmol/L (3.5-5.5); Total Protein, Blood 6.4 g/dL (6.4-8.2)
--- NOTE | 2022-02-11 07:21 | NUR ---
ELIAN ARRIVED TO ROOM 337 JUST AFTER 0300. A&OX4, INDEPENDENT IN ROOM. ARTHURY KNOWLEDGEABLE ABOUT MEDICATIONS AND MOST CURRENT PLAN FOR HER CHF AND VALVULAR DISEASE. AT ONE POINT, SHE GOT A LITTLE TEARFUL IN EXPLAINING THE LOSSES SHE HAS EXPERIENCED DUE TO HER RHEUMATIC VALVE AND "REGRETTABLE CHOICE" OF DRUG USE. SHE HAS NO COMPLAINTS OF PAIN OR DISCOMFORT, JUST SOB LAYING DOWN AND WITH MINIMAL ACTIVITY.
--- NOTE | 2022-02-11 16:57 | NUR ---
SHIFT SUMMARY PT RESTING QUIETLY AT START OF SHIFT. WOKE EASILY FOR CARE WHEN ENTERING RM. PT ON RA SINCE THIS AM, UP INDEPENDENTLY IN RM AND WALKING THE HALLS ALL DAY LONG. PT'S TO RM THIS AFTERNOON, PT UP WALKING WITH HIM WELL. PT WANTING HOME MEDICATIONS NOT ORDERED; DR NIEVES NOTIFIED. NEW ORDERS PLACED. PT BECOMING ANXIOUS THAT SHE WAS NOT GETTING ALL THE MEDS THAT SHE NORMALLY TAKES; THOUGH SHE WASN'T SURE WHAT THEY WERE. SOME MEDS HELD PER PHARMACY AND PERAMETERS; SEE EMAR. PT THEN REFUSING LABS UNTIL MEDS WERE ORDERED. DR NIEVES UPDATED AGAIN. PT'S THEN ENCOURAGED PT TO BE COMPLIANT WITH TX'S ORDERED. PT AGREEABLE TO LAB DRAW. NO C/O SOB WITH AMBULATION OR WHILE TALKING ON PHONE THRU OUT THE DAY WHILE IN RM. BIOX 97-100% ON RA. DENIED FURTHER NEEDS AT THIS TIME. CALL LT IN REACH.
--- NOTE | 2022-02-12 05:05 | NUR ---
PATIENT TO BED EARLY OVERNIGHT. A&OX4, UP AMBULATING IN ROOM UNTIL JUST AFTER HS MEDICATIONS WERE GIVEN, THEN FELL RIGHT TO SLEEP. SBP MET PARAMETERS TO RECEIVE HER HS SILDENAFIL. NO COMPLAINTS OF FEELING LIKE SHE WAS "DROWNING" OR UNABLE TO CATCH HER BREATH. SATTING >90% ON ROOM AIR
[2022-02-12 05:37] LABS: BASOPHILS ABSOLUTE AUTO 0.04 K/mm3 (0.00-0.23); BASOPHILS PERCENT AUTO 1 % (0-2); EOSINOPHILS ABSOLUTE AUTO 0.07 K/mm3 (0.00-0.68); EOSINOPHILS PERCENT AUTO 2 % (0-6); Hematocrit 31.9 % (33.0-51.0); Hemoglobin 10.6 g/dL (11.5-16.0); IMMATURE GRAN ABSOLUTE AUTO 0.02 K/mm3 (0.00-0.10); IMMATURE GRAN PERCENT AUTO 0 % (0-1); LYMPHOCYTES ABSOLUTE AUTO 1.13 K/mm3 (0.84-5.20); LYMPHOCYTES PERCENT AUTO 24 % (21-46); MONOCYTES ABSOLUTE AUTO 0.62 K/mm3 (0.16-1.47); MONOCYTES PERCENT AUTO 13 % (4-13); Mean Corpuscular HGB 32.2 pg (26.0-34.0); Mean Corpuscular HGB Conc 33.2 g/dL (31.5-36.5); Mean Corpuscular Volume 97 fL (80-100); Mean Platelet Volume 9.4 fL (9.1-12.4); NEUTROPHILS ABSOLUTE AUTO 2.77 K/mm3 (1.96-9.15); NEUTROPHILS PERCENT AUTO 60 % (41-73); Platelet Count 371 K/mm3 (150-400); RDW Coefficient Variation 12.9 % (11.7-14.2); RDW Standard Deviation 45.8 fL (35.1-46.3); Red Blood Cell Count 3.29 M/mm3 (3.80-5.20); White Blood Cell Count 4.65 K/mm3 (4.00-11.30)
[2022-02-12 06:02] LABS: Albumin, Blood 3.1 g/dL (3.4-5.0); Anion Gap 4 mmol/L (6-16); Blood Urea Nitrogen 22 mg/dL (8-24); Bun/Creatinine Ratio 39.9 (12.0-20.0); CO2, Blood 25 mmol/L (21-32); Calcium, Blood 8.6 mg/dL (8.5-10.1); Chloride, Blood 110 mmol/L (98-108); Creatinine, Blood 0.55 mg/dL (0.40-1.00); Glomerular Filtration Rate 110 (60-); Glucose, Blood 88 mg/dL (70-99); Phosphorus, Blood 3.5 mg/dL (2.5-4.9); Potassium, Blood 3.7 mmol/L (3.5-5.5); Sodium, Blood 139 mmol/L (136-145)
--- NOTE | 2022-02-12 15:29 | NUR ---
PT AWAKE DURING SHIFT REPORT, UP WALKING IN RM. NO C/O. PT WAITING FOR BREAKFAST AND AM MEDS. PT AMBULATING IN HALLS TO PASS THE TIME. PT VOIDING WELL AGAIN TODAY, AFTER LASIX. DR NIEVES IN TO SEE PT AND DISCUSS PLAN OF CARE. PT TO D/C TO HOME AFTER FURTHER REVIEW OF PT'S LABS. PT'S TO TO VISIT. D/C ORDERS PLACED. D/C INSTRUCTIONS REVIEW WITH PT; VERBALIZED UNDERSTANDING. PT TO F/U WITH PCP AND CARDIOLOGY AT [facility]. IV SITE D/C'D WNL'S. PT ASSISTED OUT TO RIDE HOME VIA W/C.
== END 2022-02-12 14:49 | disposition home or self-care (01) ==
LOC: ER 23:04 → MEDS 02-11 02:26 → ENPENDDIS 02-12 12:37 → MEDS 02-12 14:49
PROVIDERS: Family Medicine; Student in an Organized Health Care Education/Training Program; ADMIT Internal Medicine
DX: J96.01 Acute respiratory failure with hypoxia (principal); I27.21 Secondary pulmonary arterial hypertension; I05.2 Rheumatic mitral stenosis with insufficiency; J44.9 Chronic obstructive pulmonary disease, unspecified; I24.8 Other forms of acute ischemic heart disease; I11.0 Hypertensive heart disease with heart failure; I25.2 Old myocardial infarction; I50.32 Chronic diastolic (congestive) heart failure; M10.9 Gout, unspecified; E87.6 Hypokalemia; D64.9 Anemia, unspecified
CPT/HCPCS: 36415; 71045; 71046; 80053; 80069; 83880; 84145; 84484; 85025; 93005; 93010; 94640; 94664; 94760; A9270; J1650; J1940

== ENCOUNTER 2022-03-24 22:56 | Emergency (ER) | payer OTHER ==
[~2022-03-24] VITALS: Ht 177.8 cm; Wt 61.2 kg
[~2022-03-24 22:56] MED LIST changes: +IBU800 M1 PO
[2022-03-24] MEDS ORDERED: Indomethacin50 MG PO (23:48)
[2022-03-24] MEDS ORDERED: Prednisone20 MG PO (23:48)
== END 2022-03-25 02:34 | disposition home or self-care (01) ==
LOC: ER 22:56
DX: M10.9 Gout, unspecified (principal); I11.0 Hypertensive heart disease with heart failure; I50.9 Heart failure, unspecified; I25.2 Old myocardial infarction; Z87.891 Personal history of nicotine dependence; Z79.899 Other long term (current) drug therapy; Z79.52 Long term (current) use of systemic steroids
CPT/HCPCS: A9270; J7512

== ENCOUNTER 2022-06-11 14:22 | Emergency (ER) | payer OTHER ==
[~2022-06-11] VITALS: Ht 180.3 cm; Wt 63.5 kg
[~2022-06-11 14:22] MED LIST changes: +Prednisone20 MG PO
[2022-06-11] MEDS ORDERED: UPTRAVI800 MCG PO (14:31)
== END 2022-06-11 14:33 | disposition home or self-care (01) ==
LOC: ER 14:22
DX: M79.10 Myalgia, unspecified site (principal); M25.50 Pain in unspecified joint; T50.995A Adverse effect of other drugs, medicaments and biological substances, initial encounter; I11.0 Hypertensive heart disease with heart failure; I50.9 Heart failure, unspecified; Z79.899 Other long term (current) drug therapy; Z79.52 Long term (current) use of systemic steroids; Z87.891 Personal history of nicotine dependence
CPT/HCPCS: 99282

== ENCOUNTER → 2022-08-23 | Outpatient (CLI) | payer OTHER ==
[~2022-08-23] MED LIST changes: +NITR100CA PO; +ONDA4ODT MM; +UPTRAVI800 MCG PO
[2022-08-23 10:53] LABS: BASOPHILS ABSOLUTE AUTO 0.04 K/mm3 (0.00-0.23); BASOPHILS PERCENT AUTO 0 % (0-2); EOSINOPHILS ABSOLUTE AUTO 0.02 K/mm3 (0.00-0.68); EOSINOPHILS PERCENT AUTO 0 % (0-6); Hematocrit 37.3 % (33.0-51.0); Hemoglobin 12.9 g/dL (11.5-16.0); IMMATURE GRAN ABSOLUTE AUTO 0.03 K/mm3 (0.00-0.10); IMMATURE GRAN PERCENT AUTO 0 % (0-1); LYMPHOCYTES ABSOLUTE AUTO 0.74 K/mm3 (0.84-5.20); LYMPHOCYTES PERCENT AUTO 7 % (21-46); MONOCYTES ABSOLUTE AUTO 0.66 K/mm3 (0.16-1.47); MONOCYTES PERCENT AUTO 7 % (4-13); Mean Corpuscular HGB Conc 34.6 g/dL (31.5-36.5); Mean Corpuscular Volume 93 fL (80-100); Mean Platelet Volume 9.9 fL (9.1-12.4); NEUTROPHILS PERCENT AUTO 85 % (41-73); Platelet Count 354 K/mm3 (150-400); RDW Coefficient Variation 12.9 % (11.7-14.2); RDW Standard Deviation 43.6 fL (35.1-46.3); Red Blood Cell Count 4.03 M/mm3 (3.80-5.20); White Blood Cell Count 9.99 K/mm3 (4.00-11.30)
[2022-08-23 10:55] LABS: Bun/Creatinine Ratio 26.8 (12.0-20.0); Calcium, Blood 9.2 mg/dL (8.5-10.1); Creatinine, Blood 0.56 mg/dL (0.40-1.00); Potassium, Blood 3.8 mmol/L (3.5-5.5)
== END | disposition home or self-care (01) ==
LOC: LAB SHORT 10:44 → LAB 10:44
PROVIDERS: Physician Assistant
DX: N39.0 Urinary tract infection, site not specified (principal); R11.2 Nausea with vomiting, unspecified
CPT/HCPCS: 80048; 85025; 87077; 87086; 87186

== ENCOUNTER 2022-08-24 10:27 | Observation (INO) | payer OTHER ==
[~2022-08-24] VITALS: Ht 167.6 cm; Wt 67.0 kg
[~2022-08-24 10:27] MED LIST changes: -NITR100CA PO; -ONDA4ODT MM
[2022-08-24 11:20] LABS: Albumin, Blood 3.8 g/dL (3.4-5.0); Albumin/Globulin Ratio 1.1 (0.8-1.8); Bilirubin, Total 0.8 mg/dL (0.1-1.0); Bun/Creatinine Ratio 28.3 (12.0-20.0); Calcium, Blood 8.9 mg/dL (8.5-10.1); Creatinine, Blood 0.46 mg/dL (0.40-1.00); Globulin, Blood 3.6 g/dL (2.2-4.0); Potassium, Blood 3.7 mmol/L (3.5-5.5); Total Protein, Blood 7.4 g/dL (6.4-8.2)
[2022-08-24 13:11] LABS: Influenza A, PCR NEGATIVE (NEGATIVE); Influenza B, PCR NEGATIVE (NEGATIVE); Resp Syncytial Virus, PCR NEGATIVE (NEGATIVE); SARS-Cov-2 (COVID-19) PCR, MMC NEGATIVE (NEGATIVE)
--- NOTE | 2022-08-24 13:54 | NUR ---
Telephone report from Alissa Baumann RN. Pt expected to arrive in PCU 13 shortly.
[2022-08-24 13:56] LABS: BASOPHILS ABSOLUTE AUTO 0.06 K/mm3 (0.00-0.23); BASOPHILS PERCENT AUTO 1 % (0-2); EOSINOPHILS ABSOLUTE AUTO 0.06 K/mm3 (0.00-0.68); EOSINOPHILS PERCENT AUTO 1 % (0-6); Hematocrit 36.8 % (33.0-51.0); Hemoglobin 12.7 g/dL (11.5-16.0); IMMATURE GRAN ABSOLUTE AUTO 0.03 K/mm3 (0.00-0.10); IMMATURE GRAN PERCENT AUTO 0 % (0-1); LYMPHOCYTES ABSOLUTE AUTO 0.98 K/mm3 (0.84-5.20); LYMPHOCYTES PERCENT AUTO 10 % (21-46); MONOCYTES ABSOLUTE AUTO 0.59 K/mm3 (0.16-1.47); MONOCYTES PERCENT AUTO 6 % (4-13); Mean Corpuscular HGB 32.2 pg (26.0-34.0); Mean Corpuscular HGB Conc 34.5 g/dL (31.5-36.5); Mean Corpuscular Volume 93 fL (80-100); Mean Platelet Volume 9.5 fL (9.1-12.4); NEUTROPHILS ABSOLUTE AUTO 8.62 K/mm3 (1.96-9.15); NEUTROPHILS PERCENT AUTO 83 % (41-73); Platelet Count 355 K/mm3 (150-400); RDW Coefficient Variation 12.6 % (11.7-14.2); RDW Standard Deviation 43.7 fL (35.1-46.3); Red Blood Cell Count 3.95 M/mm3 (3.80-5.20); White Blood Cell Count 10.34 K/mm3 (4.00-11.30)
[2022-08-24 14:11] VITALS: BP 96/71
--- NOTE | 2022-08-24 14:15 | NUR ---
Pt alert, oriented and talkative, joking around. Asking right away for food, drink, and warm blanket. Denies difficulty breathing, states has a headache. Vital signs are stable.
[2022-08-24] MEDS ORDERED: ONDA4ODT MM ×2 (14:20)
[2022-08-24] MEDS ORDERED: Prinivil10 MG PO ×2 (14:23)
[2022-08-24] MEDS ORDERED: VITAMIN D5000 UNIT PO ×2 (14:25)
[2022-08-24] MEDS ORDERED: NITR100CA PO ×2 (14:28)
--- NOTE | 2022-08-24 15:00 | NUR ---
Pt is eating with a good appetite. Able to fully participate in care and make her needs known. Appropriate in conversation. Denies any lightheadness/dizzyness when standing to transfer to bed. Her sister in law is at the bedside. Blood pressures are less than 100 systolic, but greater than 95.
--- NOTE | 2022-08-24 16:52 | NUR ---
Pt was sitting up in bed, states that her right shoulder pain is 8/10, which she says it has always hurt since starting the Uptravi. States that the pain never really gets better, but she tolerates it by taking warm showers; the heat on the shoulder she says improves it. Pt was given Tylenol per PRN orders, and offered to assist her with a shower. After gathering supplies, I found her lying on her right side in bed, eyes closed and looking relaxed. She said that she would rest for now and perhaps have a shower later. Heating pad for pain relief was set up at bedside.
--- NOTE | 2022-08-24 17:43 | NUR ---
Pt took warm shower and says that it helped tremendously. She is eating dinner now.
[2022-08-24 18:14] VITALS: BP 100/68
[2022-08-25 00:09] VITALS: BP 86/62
[2022-08-25 04:21] LABS: BASOPHILS ABSOLUTE AUTO 0.04 K/mm3 (0.00-0.23); BASOPHILS PERCENT AUTO 1 % (0-2); EOSINOPHILS ABSOLUTE AUTO 0.16 K/mm3 (0.00-0.68); EOSINOPHILS PERCENT AUTO 3 % (0-6); Hematocrit 31.2 % (33.0-51.0); Hemoglobin 10.6 g/dL (11.5-16.0); IMMATURE GRAN ABSOLUTE AUTO 0.02 K/mm3 (0.00-0.10); IMMATURE GRAN PERCENT AUTO 0 % (0-1); LYMPHOCYTES ABSOLUTE AUTO 1.22 K/mm3 (0.84-5.20); LYMPHOCYTES PERCENT AUTO 20 % (21-46); MONOCYTES ABSOLUTE AUTO 0.62 K/mm3 (0.16-1.47); MONOCYTES PERCENT AUTO 10 % (4-13); Mean Corpuscular HGB 31.7 pg (26.0-34.0); Mean Corpuscular Volume 93 fL (80-100); Mean Platelet Volume 9.7 fL (9.1-12.4); NEUTROPHILS ABSOLUTE AUTO 3.97 K/mm3 (1.96-9.15); NEUTROPHILS PERCENT AUTO 66 % (41-73); Platelet Count 324 K/mm3 (150-400); RDW Coefficient Variation 12.3 % (11.7-14.2); RDW Standard Deviation 42.4 fL (35.1-46.3); Red Blood Cell Count 3.34 M/mm3 (3.80-5.20); White Blood Cell Count 6.03 K/mm3 (4.00-11.30)
[2022-08-25 04:34] VITALS: BP 93/74
[2022-08-25 04:44] LABS: Albumin, Blood 3.2 g/dL (3.4-5.0); Bilirubin, Total 0.6 mg/dL (0.1-1.0); Bun/Creatinine Ratio 25.2 (12.0-20.0); Calcium, Blood 8.6 mg/dL (8.5-10.1); Creatinine, Blood 0.52 mg/dL (0.40-1.00); Globulin, Blood 3.1 g/dL (2.2-4.0); Total Protein, Blood 6.3 g/dL (6.4-8.2)
--- NOTE | 2022-08-25 05:30 | NUR ---
SHIFT SUMMARY ASSUMED CARE OF PT AT 1900. PT IS A/OX4. HEART SOUNDS REGULAR, LUNG SOUNDS DIMINISHED. PT SLEPT T/O THE NOC. ASKING FOR SNACKS DURING VITAL CHECKS. BP REMAINED STABLE. PT REPORTS NO CHANGES.
[2022-08-25 07:39] VITALS: BP 115/83
[2022-08-25 08:25] LABS: Magnesium, Blood 1.9 mg/dL (1.6-2.4); Thyroid Stimulating Hormone 1.34 uIU/mL (0.360-4.800)
--- NOTE | 2022-08-25 09:59 | NUR ---
Spoke with poison control RN Alyx; she states that pt's labs and condition do not warrant any continued hospital stay nor particular outpatient follow up from [facility] stand point. Potassium IVPB is complete at this time.
[2022-08-25 11:15] VITALS: BP 126/94
--- NOTE | 2022-08-25 15:45 | NUR ---
Discharge education was done with the patient and her boyfriend at bedside. Reviewed medications (to resume all tomorrow), follow up appointment with her PCP. Pt needs to call to make the appointment with her PCP to see him in 1-2 weeks and have recommended lab work done. Pt was taken out in wheelchair by the PCT to private vehicle, and her boyfriend accompanied her.
--- NOTE | 2022-08-25 16:19 | NUR ---
pt discharging, review of pt with nursing. brief intoduction of our services. pt has had multiple er visits and admissions.
== END 2022-08-25 15:43 | disposition home or self-care (01) ==
LOC: ER 10:27 → PCU 10:28 → ER 12:40 → PCU 14:05
PROVIDERS: Emergency Medicine; ADMIT Hospitalist
DX: T50.991A Poisoning by other drugs, medicaments and biological substances, accidental (unintentional), initial encounter (principal); N39.0 Urinary tract infection, site not specified; I11.0 Hypertensive heart disease with heart failure; I50.32 Chronic diastolic (congestive) heart failure; J44.9 Chronic obstructive pulmonary disease, unspecified; I05.0 Rheumatic mitral stenosis; I27.20 Pulmonary hypertension, unspecified; Z87.891 Personal history of nicotine dependence; Z20.822 Contact with and (suspected) exposure to COVID-19
CPT/HCPCS: 0241U; 36415; 71045; 80053; 83605; 83735; 83880; 84132; 84443; 84484; 85025; 93005; 93010; 94640; 94664; 94760; 94762; 96361; 96372; 96374; 96375; 96376; 99285-25; A9270; G0378; J0696; J1650; J1940; J3480; J7030; J7050

== ENCOUNTER 2022-12-22 17:05 | Emergency (ER) | payer OTHER ==
[~2022-12-22] VITALS: Ht 180.3 cm; Wt 65.8 kg
[~2022-12-22 17:05] MED LIST changes: +NITR100CA PO; +ONDA4ODT MM
[2022-12-22 18:06] LABS: BASOPHILS ABSOLUTE AUTO 0.05 K/mm3 (0.00-0.23); BASOPHILS PERCENT AUTO 1 % (0-2); EOSINOPHILS ABSOLUTE AUTO 0.04 K/mm3 (0.00-0.68); EOSINOPHILS PERCENT AUTO 1 % (0-6); Hematocrit 35.1 % (33.0-51.0); Hemoglobin 11.9 g/dL (11.5-16.0); IMMATURE GRAN ABSOLUTE AUTO 0.03 K/mm3 (0.00-0.10); IMMATURE GRAN PERCENT AUTO 0 % (0-1); LYMPHOCYTES ABSOLUTE AUTO 0.68 K/mm3 (0.84-5.20); LYMPHOCYTES PERCENT AUTO 9 % (21-46); MONOCYTES ABSOLUTE AUTO 0.44 K/mm3 (0.16-1.47); MONOCYTES PERCENT AUTO 6 % (4-13); Mean Corpuscular HGB 30.9 pg (26.0-34.0); Mean Corpuscular HGB Conc 33.9 g/dL (31.5-36.5); Mean Corpuscular Volume 91 fL (80-100); Mean Platelet Volume 10.3 fL (9.1-12.4); NEUTROPHILS ABSOLUTE AUTO 6.24 K/mm3 (1.96-9.15); NEUTROPHILS PERCENT AUTO 83 % (41-73); Platelet Count 336 K/mm3 (150-400); RDW Coefficient Variation 12.7 % (11.7-14.2); RDW Standard Deviation 41.8 fL (35.1-46.3); Red Blood Cell Count 3.85 M/mm3 (3.80-5.20); White Blood Cell Count 7.48 K/mm3 (4.00-11.30)
[2022-12-22 18:28] LABS: Albumin, Blood 3.8 g/dL (3.4-5.0); Albumin/Globulin Ratio 1.1 (0.8-1.8); Bilirubin, Total 0.5 mg/dL (0.1-1.0); Bun/Creatinine Ratio 23.6 (12.0-20.0); Calcium, Blood 8.9 mg/dL (8.5-10.1); Creatinine, Blood 0.64 mg/dL (0.40-1.00); Globulin, Blood 3.5 g/dL (2.2-4.0); Potassium, Blood 3.8 mmol/L (3.5-5.5); Total Protein, Blood 7.3 g/dL (6.4-8.2)
[2022-12-22 19:01] VITALS: BP 88/65
== END 2022-12-22 19:00 | disposition home or self-care (01) ==
LOC: ER 17:05
PROVIDERS: Emergency Medicine
DX: U07.1 COVID-19 (principal); R07.9 Chest pain, unspecified; Z79.899 Other long term (current) drug therapy; I11.0 Hypertensive heart disease with heart failure; I50.9 Heart failure, unspecified; I25.2 Old myocardial infarction; M06.9 Rheumatoid arthritis, unspecified; Z87.891 Personal history of nicotine dependence
CPT/HCPCS: 71046; 80053; 83880; 84484; 85025; 93005; 93010; 99285-25; A9270

== ENCOUNTER 2023-03-05 22:54 | Inpatient (IN) | payer OTHER ==
[~2023-03-05] VITALS: Ht 180.3 cm; Wt 70.0 kg
[2023-03-05 23:27] LABS: BASOPHILS ABSOLUTE AUTO 0.08 K/mm3 (0.00-0.23); BASOPHILS PERCENT AUTO 1 % (0-2); EOSINOPHILS ABSOLUTE AUTO 0.08 K/mm3 (0.00-0.68); EOSINOPHILS PERCENT AUTO 1 % (0-6); Hematocrit 36.5 % (33.0-51.0); IMMATURE GRAN ABSOLUTE AUTO 0.04 K/mm3 (0.00-0.10); IMMATURE GRAN PERCENT AUTO 0 % (0-1); LYMPHOCYTES ABSOLUTE AUTO 1.31 K/mm3 (0.84-5.20); LYMPHOCYTES PERCENT AUTO 12 % (21-46); MONOCYTES ABSOLUTE AUTO 0.54 K/mm3 (0.16-1.47); MONOCYTES PERCENT AUTO 5 % (4-13); Mean Corpuscular HGB 30.7 pg (26.0-34.0); Mean Corpuscular HGB Conc 32.9 g/dL (31.5-36.5); Mean Corpuscular Volume 93 fL (80-100); Mean Platelet Volume 10.1 fL (9.1-12.4); NEUTROPHILS ABSOLUTE AUTO 8.71 K/mm3 (1.96-9.15); NEUTROPHILS PERCENT AUTO 81 % (41-73); Platelet Count 338 K/mm3 (150-400); RDW Coefficient Variation 13.8 % (11.7-14.2); RDW Standard Deviation 46.9 fL (35.1-46.3); Red Blood Cell Count 3.91 M/mm3 (3.80-5.20); White Blood Cell Count 10.76 K/mm3 (4.00-11.30)
[2023-03-05 23:57] LABS: Alanine Aminotransfer (ALT/SGP 19 U/L (12-78); Albumin, Blood 3.7 g/dL (3.4-5.0); Albumin/Globulin Ratio 1.1 (0.8-1.8); Alk Phos 145 U/L (50-136); Anion Gap 7 mmol/L (6-16); Aspartate Aminotrans (AST/SGOT 15 U/L (12-37); Bilirubin, Total 0.4 mg/dL (0.1-1.0); Blood Urea Nitrogen 15 mg/dL (8-24); Bun/Creatinine Ratio 24.4 (12.0-20.0); CO2, Blood 25 mmol/L (21-32); Calcium, Blood 8.3 mg/dL (8.5-10.1); Chloride, Blood 109 mmol/L (98-108); Creatinine, Blood 0.62 mg/dL (0.40-1.00); Digoxin (Lanoxin) 0.63 ug/mL (0.80-2.00); Globulin, Blood 3.4 g/dL (2.2-4.0); Glomerular Filtration Rate 106 (60-); Glucose, Blood 121 mg/dL (70-99); Potassium, Blood 3.6 mmol/L (3.5-5.5); Sodium, Blood 141 mmol/L (136-145); Total Protein, Blood 7.1 g/dL (6.4-8.2)
[2023-03-06] VITALS (9 sets, daily range): BP systolic 93–113; BP diastolic 68–87
[2023-03-06 00:06] LABS: Influenza A, PCR NEGATIVE (NEGATIVE); Influenza B, PCR NEGATIVE (NEGATIVE); Resp Syncytial Virus, PCR NEGATIVE (NEGATIVE); SARS-Cov-2 (COVID-19) PCR, MMC NEGATIVE (NEGATIVE)
[2023-03-06 00:40] LABS: Source, Urine Clean Catch
[2023-03-06 00:54] LABS: Bilirubin, Urine Neg (Neg); Blood, Urine Neg (Neg); Glucose Qualitative, Urine Neg (Neg); Ketones, Urine Neg (Neg); Leukocyte Esterase, Urine Neg (Neg); Nitrite, Urine Neg (Neg); Protein, Urine 1+ (Neg); Specific Gravity, Urine 1.015 (1.003-1.022); Urobilinogen, Urine NORM (Normal)
[2023-03-06 01:03] LABS: Appearance, Urine Clear (Clear); Color, Urine Yellow (P-Yellow)
[2023-03-06 03:30] LABS: BASOPHILS ABSOLUTE AUTO 0.09 K/mm3 (0.00-0.23); BASOPHILS PERCENT AUTO 1 % (0-2); EOSINOPHILS ABSOLUTE AUTO 0.02 K/mm3 (0.00-0.68); EOSINOPHILS PERCENT AUTO 0 % (0-6); Hematocrit 34.2 % (33.0-51.0); Hemoglobin 11.3 g/dL (11.5-16.0); IMMATURE GRAN ABSOLUTE AUTO 0.04 K/mm3 (0.00-0.10); IMMATURE GRAN PERCENT AUTO 0 % (0-1); LYMPHOCYTES ABSOLUTE AUTO 0.92 K/mm3 (0.84-5.20); LYMPHOCYTES PERCENT AUTO 8 % (21-46); MONOCYTES ABSOLUTE AUTO 0.59 K/mm3 (0.16-1.47); MONOCYTES PERCENT AUTO 5 % (4-13); Mean Corpuscular HGB 30.9 pg (26.0-34.0); Mean Corpuscular Volume 93 fL (80-100); Mean Platelet Volume 9.9 fL (9.1-12.4); NEUTROPHILS ABSOLUTE AUTO 10.11 K/mm3 (1.96-9.15); NEUTROPHILS PERCENT AUTO 86 % (41-73); Platelet Count 299 K/mm3 (150-400); RDW Coefficient Variation 13.7 % (11.7-14.2); RDW Standard Deviation 46.5 fL (35.1-46.3); Red Blood Cell Count 3.66 M/mm3 (3.80-5.20); White Blood Cell Count 11.77 K/mm3 (4.00-11.30)
--- NOTE | 2023-03-06 03:37 | NUR ---
ARRIVAL TO UNIT AFTER RECEIVING REPORT FROM ED RN, PATIENT TRANSFERRED TO UNIT VIA GURNEY AT APPROX 0100. PATIENT ABLE TO STAND AND TRANSFER FROM ED GURNEY TO BED WITH STAND BY ASSIST. IS ALERT AND ORIENTED X4. TELEMETRY SHOWING SINUS TACH 120's. HAS SINCE DECREASED TO 100's-110's. BP STABLE. ON 3L VIA NASAL CANNULA, SATS 90-94%. TACHYPNEIC AT REST, RR 22-24. REPORTS PLEURIC CHEST PAIN WITH COUGHING. OCCASSIONAL, NONPRODUCTIVE COUGH. PATIENT FEBRILE, TEMP 101.0. PO TYLENOL ADMINISTERED PER EMAR. CURRENT TEMPERATURE, 98.9. IVF AND ABX INFUSING PER EMAR. CALL LIGHT IN REACH.
[2023-03-06 04:00] LABS: Albumin, Blood 3.4 g/dL (3.4-5.0); Albumin/Globulin Ratio 1.1 (0.8-1.8); Bilirubin, Total 0.6 mg/dL (0.1-1.0); Bun/Creatinine Ratio 23.3 (12.0-20.0); Creatinine, Blood 0.6 mg/dL (0.40-1.00); Globulin, Blood 3.1 g/dL (2.2-4.0); Potassium, Blood 3.5 mmol/L (3.5-5.5); Total Protein, Blood 6.5 g/dL (6.4-8.2)
--- NOTE | 2023-03-06 06:10 | NUR ---
SHIFT SUMMARY NO ACUTE CHANGES SINCE PREVIOUS NOTE. PATIENT SLEPT PERIODICALLY SINCE ARRIVAL TO UNIT, EASILY AROUSABLE TO VERBAL STIMULI. TELEMETRY SHOWING SINUS 80's. BP SOFT AT THIS TIME, SBP 90's-100's. ON 2L VIA NASAL CANNULA, SATS 90-94%. RR 18-22. VOIDING. IS A STAND BY ASSIST TO BSC. CALL LIGHT IN REACH. WILL REPORT TO ONCOMING RN.
--- NOTE | 2023-03-06 12:55 | NUR ---
Upon receiving a referral for spiritual care, I visited the patient. She welcomes spiritual care enthusiastically. She tells me about her current medical issues and about her alevism. I explore her holiness beliefs and the impact of that von upon her medical conditions. She states that her von is the most important focus in her life and asks for prayer. I gladly provide prayer and patient becomes tearful. She tells me that the prayer will most certainly be the most encourgement that she will receive all day. I will continue to remain available.
[2023-03-06 13:05] LABS: Acinetobacter baumannii DNA Not Detected copy/mL (NOT DETECT); Adenovirus DNA Not Detected (NOT DETECT); Chlamydia pneumonia Not Detected (NOT DETECT); Enterobacter cloacae DNA Not Detected copy/mL (NOT DETECT); Escherichia coli DNA Not Detected copy/mL (NOT DETECT); Haemophilus influenzae DNA Not Detected copy/mL (NOT DETECT); Human Coronavirus RNA Not Detected (NOT DETECT); Human Metapneumovirus RNA Not Detected (NOT DETECT); Klebsiella aerogenes DNA Not Detected copy/mL (NOT DETECT); Klebsiella oxytoca DNA Not Detected copy/mL (NOT DETECT); Klebsiella pneumoniae DNA Not Detected copy/mL (NOT DETECT); Legionella pneumophila Not Detected (NOT DETECT); Moraxella catarrhalis DNA Not Detected copy/mL (NOT DETECT); Mycoplasma pneumoniae Not Detected (NOT DETECT); Proteus sp DNA Not Detected copy/mL (NOT DETECT); Pseudomonas aeruginosa DNA Not Detected copy/mL (NOT DETECT); Rhinovirus+Enterovirus RNA Detected (NOT DETECT); Serratia marcescens DNA Not Detected copy/mL (NOT DETECT); Staphylococcus aureus DNA Not Detected copy/mL (NOT DETECT); Streptococcus agalactiae DNA Not Detected copy/mL (NOT DETECT); Streptococcus pneumoniae DNA Not Detected copy/mL (NOT DETECT); Streptococcus pyogenes DNA Not Detected copy/mL (NOT DETECT)
[2023-03-06 13:06] LABS: Influenza virus A RNA Not Detected (NOT DETECT); Influenza virus B RNA Not Detected (NOT DETECT); Parainfluenza virus RNA Not Detected (NOT DETECT); Respiratory syncytial Vir RNA Not Detected (NOT DETECT)
--- NOTE | 2023-03-06 17:52 | NUR ---
END OF SHIFT / MEDICAL STATUS PT A&O X4. PLEASANT & COOPERATIVE, IRRITABLE AT TIMES. VSS. SPO2 > 92% ON RA. MONITOR SHOWING SR-ST, HR 90s-110s W/ EPISODE OF INCREASE TO 130s THIS SHIFT. PT REPORTING "DRY THROAT AND CHEST." PT PROVIDED W/ TEA & HONEY W/ PT REPORT OF IMPROVEMENT. PT MADE MEDICAL W/ TELE STATUS THIS SHIFT.
--- NOTE | 2023-03-06 20:45 | NUR ---
ASSUMPTION OF CARE AFTER RECEIVING REPORT FROM SHWETA HAMMER, THIS RN ASSUMED CARE AT APPROX 1915. PATIENT IS ALERT AND ORIENTED X4. COOPERATIVE WITH CARE. DOES EXPERIENCE EPISODES OF INCREASED ANXIETY, AND AT TIMES, IRRITABILITY. ABLE TO EASE EPISODES WITH THERAPEUTIC DISCUSSION. TELEMETRY SHOWING SINUS TACH 110's-120's. BP SOFT, SBP 90's-100's. MAP >65. PATIENT IS ASYMPTOMATIC OF SOFT BP. ON ROOM AIR, SATS > 92%. 2L VIA NASAL CANNULA PRN. OCCASSIONAL HACKING COUGH. PATIENT IS STAND BY ASSIST TO BATHROOM. ABLE TO REPOSITION HERSELF IN BED INDEPENDENTLY. CALL LIGHT IN REACH.
[2023-03-07 04:56] VITALS: BP 98/72
--- NOTE | 2023-03-07 05:01 | NUR ---
SHIFT SUMMARY NO ACUTE CHANGES SINCE PREVIOUS NOTE. PATIENT SLEPT INTERMITTENTLY THROUGHOUT SHIFT, EASILY AROUSABLE TO VERBAL STIMULI. INDEPENDENT IN ROOM. TOOK A SHOWER. TELEMETRY SHOWING SINUS TACH 110's-120's. RATE 100's-110's WHILE SLEEPING. BP REMAINS SOFT, SBP 90's-100's. MAP REMAINS >65. REMAINS ON ROOM AIR, SATS >92%. OCCASSIONAL COUGH IS BECOMING MORE PRODUCTIVE. CALL LIGHT IN REACH. WILL REPORT TO ONCOMING RN.
[2023-03-07 07:40] LABS: BASOPHILS ABSOLUTE AUTO 0.09 K/mm3 (0.00-0.23); BASOPHILS PERCENT AUTO 1 % (0-2); EOSINOPHILS ABSOLUTE AUTO 0.09 K/mm3 (0.00-0.68); EOSINOPHILS PERCENT AUTO 1 % (0-6); Hematocrit 33.6 % (33.0-51.0); Hemoglobin 11.3 g/dL (11.5-16.0); IMMATURE GRAN ABSOLUTE AUTO 0.06 K/mm3 (0.00-0.10); IMMATURE GRAN PERCENT AUTO 0 % (0-1); LYMPHOCYTES ABSOLUTE AUTO 1.15 K/mm3 (0.84-5.20); LYMPHOCYTES PERCENT AUTO 8 % (21-46); MONOCYTES ABSOLUTE AUTO 0.86 K/mm3 (0.16-1.47); MONOCYTES PERCENT AUTO 6 % (4-13); Mean Corpuscular HGB Conc 33.6 g/dL (31.5-36.5); Mean Corpuscular Volume 92 fL (80-100); Mean Platelet Volume 10.8 fL (9.1-12.4); NEUTROPHILS PERCENT AUTO 85 % (41-73); Platelet Count 302 K/mm3 (150-400); RDW Coefficient Variation 13.8 % (11.7-14.2); RDW Standard Deviation 47.4 fL (35.1-46.3); Red Blood Cell Count 3.65 M/mm3 (3.80-5.20); White Blood Cell Count 14.75 K/mm3 (4.00-11.30)
[2023-03-07 07:41] VITALS: BP 102/79
[2023-03-07 11:38] VITALS: BP 97/76
--- NOTE | 2023-03-07 13:20 | NUR ---
DISCHARGE HOME PT MEDICAL STATUS. A&O X4. VSS. SPO2 > 92% ON RA. W/ ORDER FOR DISCHARGE HOME. DISCHARGE INSTRUCTIONS REVIEWED W/ PT & SENT HOME W/ PT. PIV REMOVED. PT TAKEN OUT IN WHEELCHAIR W/ BELONGINGS @ APPROX 1245.
== END 2023-03-07 12:43 | disposition home or self-care (01) | DRG 871 ==
LOC: ER 22:54 → PCU 03-06 00:54
PROVIDERS: Emergency Medicine; Family Medicine; Internal Medicine; ADMIT Internal Medicine
DX: A41.9 Sepsis, unspecified organism (principal); J18.9 Pneumonia, unspecified organism; J96.01 Acute respiratory failure with hypoxia; I50.32 Chronic diastolic (congestive) heart failure; Z11.52 Encounter for screening for COVID-19; I27.20 Pulmonary hypertension, unspecified; I10 Essential (primary) hypertension; I34.2 Nonrheumatic mitral (valve) stenosis; M10.9 Gout, unspecified; I73.00 Raynaud's syndrome without gangrene; F15.91 Other stimulant use, unspecified, in remission; I25.2 Old myocardial infarction; Z87.891 Personal history of nicotine dependence
CPT/HCPCS: 0241U; 36415; 71045; 80053; 80162; 83605; 83880; 84145; 85025; 87081; 87430; 87449; 87633; 93005; 93010; 94640; 94664; 94760; 94762; 96361; 96365; 99285-25; A9270; J0456; J0696; J1650; J7030; J7050

== ENCOUNTER 2024-01-30 19:14 | Emergency (ER) | payer OTHER ==
[~2024-01-30] VITALS: Ht 177.8 cm; Wt 67.1 kg
[2024-01-30 19:18] VITALS: BP 139/88
[2024-01-30 19:57] LABS: BASOPHILS ABSOLUTE AUTO 0.09 K/mm3 (0.00-0.23); BASOPHILS PERCENT AUTO 1 % (0-2); EOSINOPHILS ABSOLUTE AUTO 0.11 K/mm3 (0.00-0.68); EOSINOPHILS PERCENT AUTO 2 % (0-6); Hematocrit 43.3 % (33.0-51.0); Hemoglobin 14.3 g/dL (11.5-16.0); IMMATURE GRAN ABSOLUTE AUTO 0.08 K/mm3 (0.00-0.10); IMMATURE GRAN PERCENT AUTO 1 % (0-1); LYMPHOCYTES ABSOLUTE AUTO 1.75 K/mm3 (0.84-5.20); LYMPHOCYTES PERCENT AUTO 25 % (21-46); MONOCYTES ABSOLUTE AUTO 0.54 K/mm3 (0.16-1.47); MONOCYTES PERCENT AUTO 8 % (4-13); Mean Corpuscular HGB 30.2 pg (26.0-34.0); Mean Corpuscular Volume 92 fL (80-100); Mean Platelet Volume 9.6 fL (9.1-12.4); NEUTROPHILS ABSOLUTE AUTO 4.51 K/mm3 (1.96-9.15); NEUTROPHILS PERCENT AUTO 64 % (41-73); Platelet Count 447 K/mm3 (150-400); RDW Coefficient Variation 13.5 % (11.7-14.2); RDW Standard Deviation 45.6 fL (35.1-46.3); Red Blood Cell Count 4.73 M/mm3 (3.80-5.20); White Blood Cell Count 7.08 K/mm3 (4.00-11.30)
[2024-01-30 20:15] LABS: Albumin, Blood 4.1 g/dL (3.4-5.0); Albumin/Globulin Ratio 1.1 (0.8-1.8); Bilirubin, Total 0.3 mg/dL (0.1-1.0); Bun/Creatinine Ratio 20.7 (12.0-20.0); Calcium, Blood 9.2 mg/dL (8.5-10.1); Creatinine, Blood 0.63 mg/dL (0.40-1.00); Globulin, Blood 3.8 g/dL (2.2-4.0); Potassium, Blood 3.7 mmol/L (3.5-5.5); Total Protein, Blood 7.9 g/dL (6.4-8.2)
== END 2024-01-30 20:11 | disposition left against medical advice (07) ==
LOC: ER 19:14
PROVIDERS: Student in an Organized Health Care Education/Training Program
DX: R07.81 Pleurodynia (principal); R06.02 Shortness of breath; Z53.21 Procedure and treatment not carried out due to patient leaving prior to being seen by health care provider
CPT/HCPCS: 71046; 80053; 83690; 84484; 85025; 99283-25

== ENCOUNTER → 2024-05-06 | Outpatient (CLI) | payer OTHER ==
[2024-05-15 13:04] LABS: HPV HIGH RISK BY TMA Not Detected; HPV SOURCE Cervical
== END | disposition home or self-care (01) ==
LOC: LAB 12:04 → LAB SHORT 12:04
PROVIDERS: Nurse Practitioner Family
DX: Z12.4 Encounter for screening for malignant neoplasm of cervix (principal)
CPT/HCPCS: 87624; G0123

== ENCOUNTER → 2024-05-08 | Outpatient (CLI) | payer OTHER ==
[2024-05-08 14:51] LABS: Creatinine Urine 42.4 mg/dL (27.00-270.00); Protein, Urine Quantitative 7.5 mg/dL (0.0-11.9)
== END ==
LOC: LAB 11:00 → LAB SHORT 11:00
PROVIDERS: Nurse Practitioner Family
DX: I27.20 Pulmonary hypertension, unspecified (principal)
CPT/HCPCS: 81050; 82570; 84156

== ENCOUNTER → 2024-05-22 | Outpatient (CLI) | payer OTHER ==
[2024-05-29 11:37] LABS: HPV HIGH RISK BY TMA Not Detected; HPV SOURCE Cervical
== END ==
LOC: LAB 16:39 → LAB SHORT 16:39
PROVIDERS: Nurse Practitioner Family
DX: Z12.4 Encounter for screening for malignant neoplasm of cervix (principal)
CPT/HCPCS: 87624; G0123

== ENCOUNTER 2024-12-19 16:57 | Emergency (ER) | payer OTHER ==
[~2024-12-19] VITALS: Ht 180.3 cm; Wt 72.6 kg
[2024-12-19 17:43] LABS: BASOPHILS ABSOLUTE AUTO 0.10 K/mm3 (0.00-0.23); BASOPHILS PERCENT AUTO 1 % (0-2); EOSINOPHILS ABSOLUTE AUTO 0.07 K/mm3 (0.00-0.68); EOSINOPHILS PERCENT AUTO 1 % (0-6); Hematocrit 42.9 % (33.0-51.0); Hemoglobin 14.6 g/dL (11.5-16.0); IMMATURE GRAN ABSOLUTE AUTO 0.10 K/mm3 (0.00-0.10); IMMATURE GRAN PERCENT AUTO 1 % (0-1); LYMPHOCYTES ABSOLUTE AUTO 1.07 K/mm3 (0.84-5.20); LYMPHOCYTES PERCENT AUTO 14 % (21-46); MONOCYTES ABSOLUTE AUTO 0.59 K/mm3 (0.16-1.47); MONOCYTES PERCENT AUTO 8 % (4-13); Mean Corpuscular HGB Conc 34.0 g/dL (31.5-36.5); Mean Corpuscular Volume 89 fL (80-100); NEUTROPHILS ABSOLUTE AUTO 5.72 K/mm3 (1.96-9.15); NEUTROPHILS PERCENT AUTO 75 % (41-73); NRBC ABSOLUTE 0.00 K/mm3 (0.00-0.02); NRBC Auto 0.0 /100 WBC (0.0-0.2); Platelet Count 350 K/mm3 (150-400); RDW Coefficient Variation 14.7 % (11.7-14.2); RDW Standard Deviation 47.9 fL (35.1-46.3)
[2024-12-19 18:16] LABS: Alanine Aminotransfer (ALT/SGP 25.0 U/L (12-78); Albumin, Blood 3.7 g/dL (3.4-5.0); Albumin/Globulin Ratio 1.1 (0.8-1.8); Anion Gap 9.0 mmol/L (3-11); Aspartate Aminotrans (AST/SGOT 16.0 U/L (12-37); Bilirubin, Total 0.4 mg/dL (0.1-1.0); Blood Urea Nitrogen 13.0 mg/dL (8-24); CO2, Blood 21.0 mmol/L (21-32); Calcium, Blood 8.9 mg/dL (8.5-10.1); Chloride, Blood 110.0 mmol/L (98-108); Creatinine, Blood 0.58 mg/dL (0.40-1.00); Globulin, Blood 3.5 g/dL (2.2-4.0); Glucose, Blood 152.0 mg/dL (70-99); Potassium, Blood 3.3 mmol/L (3.5-5.5); Sodium, Blood 137.0 mmol/L (136-145); Total Protein, Blood 7.2 g/dL (6.4-8.2)
[2024-12-19 19:13] LABS: Influenza A, PCR NEGATIVE (NEGATIVE); Influenza B, PCR NEGATIVE (NEGATIVE); Resp Syncytial Virus, PCR NEGATIVE (NEGATIVE)
[2024-12-19 19:25] LABS: SARS-Cov-2 (COVID-19) PCR, MMC POSITIVE (NEGATIVE)
[2024-12-19 19:30] VITALS: BP 110/76
== END 2024-12-19 19:49 | disposition home or self-care (01) ==
LOC: ER 16:57
PROVIDERS: Student in an Organized Health Care Education/Training Program
DX: U07.1 COVID-19 (principal); I11.0 Hypertensive heart disease with heart failure; I50.9 Heart failure, unspecified; I25.2 Old myocardial infarction; Z87.891 Personal history of nicotine dependence; Z79.899 Other long term (current) drug therapy
CPT/HCPCS: 71046; 80053; 83880; 84484; 85025; 87637; 93005; 93010; 99285-25

== ENCOUNTER 2025-03-24 22:51 | Inpatient (IN) | payer OTHER ==
[~2025-03-24] VITALS: Ht 177.8 cm; Wt 73.4 kg
[2025-03-24 23:17] LABS: BASOPHILS ABSOLUTE AUTO 0.08 K/mm3 (0.00-0.23); BASOPHILS PERCENT AUTO 0 % (0-2); EOSINOPHILS ABSOLUTE AUTO 0.01 K/mm3 (0.00-0.68); EOSINOPHILS PERCENT AUTO 0 % (0-6); Hematocrit 42.6 % (33.0-51.0); Hemoglobin 14.4 g/dL (11.5-16.0); IMMATURE GRAN ABSOLUTE AUTO 0.37 K/mm3 (0.00-0.10); IMMATURE GRAN PERCENT AUTO 1 % (0-1); LYMPHOCYTES ABSOLUTE AUTO 0.63 K/mm3 (0.84-5.20); LYMPHOCYTES PERCENT AUTO 2 % (21-46); MONOCYTES ABSOLUTE AUTO 0.18 K/mm3 (0.16-1.47); MONOCYTES PERCENT AUTO 1 % (4-13); Mean Corpuscular HGB Conc 33.8 g/dL (31.5-36.5); Mean Corpuscular Volume 89 fL (80-100); NEUTROPHILS ABSOLUTE AUTO 24.72 K/mm3 (1.96-9.15); NEUTROPHILS PERCENT AUTO 95 % (41-73); NRBC ABSOLUTE 0.00 K/mm3 (0.00-0.02); NRBC Auto 0.0 /100 WBC (0.0-0.2); Platelet Count 392 K/mm3 (150-400); RDW Coefficient Variation 14.8 % (11.7-14.2); RDW Standard Deviation 47.8 fL (35.1-46.3)
[2025-03-24 23:32] LABS: pH Blood Venous 7.48 (7.34-7.37)
[2025-03-24 23:48] LABS: Anion Gap 16 mmol/L (3-11); Blood Urea Nitrogen 25 mg/dL (8-24); CO2, Blood 17 mmol/L (21-32); Calcium, Blood 8.9 mg/dL (8.5-10.1); Chloride, Blood 110 mmol/L (98-108); Creatinine, Blood 0.55 mg/dL (0.40-1.00); Glucose, Blood 254 mg/dL (70-99); Potassium, Blood 3.6 mmol/L (3.5-5.5); Sodium, Blood 139 mmol/L (136-145)
[2025-03-25] MEDS ORDERED: CefTRIAXone Sodium 1,000 MG in NS 100 ML IV ONE ×2 (00:05→02:05)
[2025-03-25] MEDS ORDERED: Doxycycline Hyclate 100 MG in Dextrose 5% 250 ML IV ONE (00:05)
[2025-03-25 00:06] LABS: Alanine Aminotransfer (ALT/SGP 21.0 U/L (12-78); Albumin, Blood 3.3 g/dL (3.4-5.0); Albumin/Globulin Ratio 0.8 (0.8-1.8); Anion Gap 14.0 mmol/L (3-11); Aspartate Aminotrans (AST/SGOT 20.0 U/L (12-37); Bilirubin, Total 0.6 mg/dL (0.1-1.0); Blood Urea Nitrogen 23.0 mg/dL (8-24); C-REACTIVE PROTEIN, EXT RANGE 7.69 mg/dL (0.000-0.300); CO2, Blood 16.0 mmol/L (21-32); Calcium, Blood 8.4 mg/dL (8.5-10.1); Chloride, Blood 112.0 mmol/L (98-108); Creatinine, Blood 0.52 mg/dL (0.40-1.00); Globulin, Blood 4.0 g/dL (2.2-4.0); Glucose, Blood 230.0 mg/dL (70-99); Potassium, Blood 3.5 mmol/L (3.5-5.5); Sodium, Blood 138.0 mmol/L (136-145); Total Protein, Blood 7.3 g/dL (6.4-8.2)
[2025-03-25 01:23] LABS: Influenza A/2009-H1 Not Detected (NOT DETECT); SARS-Cov-2 (COVID-19), BioFire Not Detected (NOT DETECT)
[2025-03-25] MEDS ORDERED: Ketorolac Tromethamine 15mg Vial IV PRN (01:25)
[2025-03-25] MEDS ORDERED: FLU VACC TS2025-26(6MOS UP)/PF 45 MCG/0.5 ML SYRINGE IM SCH (01:40)
[2025-03-25] MEDS ORDERED: Albuterol 2.5 MG/3 ML VIAL INH SCH (01:45)
[2025-03-25] MEDS ORDERED: Ipratropium/Albuterol SulF 2.5-0.5MG/3 ML Amp INH SCH (01:50)
[2025-03-25] MEDS ORDERED: CefTRIAXone Sodium 2,000 MG in NS 100 ML IV SCH ×2 (01:52→21:00)
[2025-03-25] MEDS ORDERED: FentaNYL Citrate 50 MCG/ML 2 ML Injection IV PRN (02:55)
[2025-03-25] MEDS ORDERED: Albuterol 2.5 MG/3 ML VIAL INH PRN (04:15)
[2025-03-25 05:52] LABS: BASOPHILS ABSOLUTE AUTO 0.03 K/mm3 (0.00-0.23); BASOPHILS PERCENT AUTO 0 % (0-2); EOSINOPHILS ABSOLUTE AUTO 0.00 K/mm3 (0.00-0.68); EOSINOPHILS PERCENT AUTO 0 % (0-6); Hematocrit 40.3 % (33.0-51.0); Hemoglobin 13.5 g/dL (11.5-16.0); IMMATURE GRAN ABSOLUTE AUTO 0.29 K/mm3 (0.00-0.10); IMMATURE GRAN PERCENT AUTO 2 % (0-1); LYMPHOCYTES ABSOLUTE AUTO 0.65 K/mm3 (0.84-5.20); LYMPHOCYTES PERCENT AUTO 3 % (21-46); MONOCYTES ABSOLUTE AUTO 0.20 K/mm3 (0.16-1.47); MONOCYTES PERCENT AUTO 1 % (4-13); Mean Corpuscular HGB Conc 33.5 g/dL (31.5-36.5); Mean Corpuscular Volume 91 fL (80-100); NEUTROPHILS ABSOLUTE AUTO 18.18 K/mm3 (1.96-9.15); NEUTROPHILS PERCENT AUTO 94 % (41-73); NRBC ABSOLUTE 0.00 K/mm3 (0.00-0.02); NRBC Auto 0.0 /100 WBC (0.0-0.2); Platelet Count 350 K/mm3 (150-400); RDW Coefficient Variation 14.7 % (11.7-14.2); RDW Standard Deviation 49.0 fL (35.1-46.3)
[2025-03-25 06:17] LABS: Alanine Aminotransfer (ALT/SGP 21.0 U/L (12-78); Albumin, Blood 3.1 g/dL (3.4-5.0); Albumin/Globulin Ratio 0.8 (0.8-1.8); Anion Gap 10.0 mmol/L (3-11); Aspartate Aminotrans (AST/SGOT 17.0 U/L (12-37); Bilirubin, Total 0.7 mg/dL (0.1-1.0); Blood Urea Nitrogen 22.0 mg/dL (8-24); CO2, Blood 22.0 mmol/L (21-32); Calcium, Blood 8.5 mg/dL (8.5-10.1); Chloride, Blood 109.0 mmol/L (98-108); Creatinine, Blood 0.58 mg/dL (0.40-1.00); Globulin, Blood 3.9 g/dL (2.2-4.0); Glucose, Blood 213.0 mg/dL (70-99); Magnesium, Blood 2.2 mg/dL (1.6-2.4); Potassium, Blood 3.7 mmol/L (3.5-5.5); Sodium, Blood 137.0 mmol/L (136-145); Total Protein, Blood 7.0 g/dL (6.4-8.2)
--- NOTE | 2025-03-25 07:45 | NUR ---
ARRIVAL NOTE: PATIENT ARRIVES TO UNIT AT APPROXIAMTELY 0735 FROM ER. PATIENT IS ABLE TO AMBULATE TO NEW BED. SATTING >92% ON 8 LITERS HIGH FLOW NASAL CANNULA. ON TELE SHOWING SINUS TACH WITH RATE 114. PATIENT ALERT AND ORIETNED X4 & ORIENTED TO ROOM, CALLED TO NOTIFY OF ROOM CHANGE. PATIENT HAS CALL LIGHT WITHIN REACH, BED IN LOWEST LOCKED POSITION & STATING NOTHING ELSE IS NEEDED AT THIS TIME.
[2025-03-25 07:48] VITALS: BP 111/90
[2025-03-25] MEDS ORDERED: FAMO10 PO (07:53)
[2025-03-25] MEDS ORDERED: Misc. Tablet PO SCH (09:00)
[2025-03-25] MEDS ORDERED: Lactobacil 2-S.Thermo-Bifido 1 1 Cap PO SCH (09:00)
[2025-03-25] MEDS ORDERED: Cholecalciferol 1000 Unit Tablet (=25MCG) PO SCH (09:00)
[2025-03-25] MEDS ORDERED: Enoxaparin 40 MG/0.4 ML SYR SC SCH (09:00)
[2025-03-25 11:02] VITALS: BP 107/74
--- NOTE | 2025-03-25 13:32 | NUR ---
MD CALLED: THIS RN CALLED RESIDENT REGARDING PATIENT STATING SHE TAKES MEDICATION AT 1400 & NOT HAVING IT ON EMAR, RESIDENT TO ADD HOME MEDICATION. RESIDENT WAS ALSO NOTIFIED THAT RECORDS FROM [facility] HAVE BEEN RECEIVIED WELL.
--- NOTE | 2025-03-25 15:14 | NUR ---
TRANSFER NOTE: PATIENT IS ALERT AND ORIETNED X4 & COOPERATIVE WITH HER CARE, IS ABLE TO MAKE NEEDS KNOWN & USES CALL LIGHT APPROPRIATELY. SATTING >92% ON 3-8LITERS VIA HEATED HIGH FLOW. WHEN PATIENT SITS UP IS ABLE TO RECOVER QUICKLY AND ABLE TO TIRATE DOWN T 3-4LITERS. ON TELE SHOWING SINUS TACH WITH PVC'S WITH RATE 114, OCCASIONALLY DOES TACH UP TO 135 WITH EXERTION AND AMBULATION. PATIENT TOOK ALL PERSONAL BELONINGS WITH HER UPON THE TRANSFER. REPORT WAS GIVEN TO RECEIVING RN PRIOR TO TRANSFER. DWIGHT WENT VIA WHEELCHAIR WITHOUT ANY COMPLAINTS.
[2025-03-25 15:43] VITALS: BP 119/82
--- NOTE | 2025-03-25 17:43 | NUR ---
SHIFT SUMMARY PATIENT AOX4 ABLE TO MAKE NEEDS KNOWN DENIES CP OR SOB. DOES HAVE SOME SOME SOB ON EXERTION. SATS GRTEATER THAN 90% ON 4-6L NC. TELE SHOWED ST DEPRESSION DR LACY AND EKG DONE. VITALS STABLE HR TACHY 110s. INDEPENDENT TO BATHROOM TOLERATING MEALS COMPLIANT WITH 2L FLUID RESTRICTION.
[2025-03-25] MEDS ORDERED: Furosemide 10 MG / ML 2ML Vial IV SCH (18:00)
[2025-03-25 20:33] VITALS: BP 123/85
[2025-03-26] VITALS (8 sets, daily range): BP systolic 105–137; BP diastolic 64–96
[2025-03-26 05:05] LABS: BASOPHILS ABSOLUTE AUTO 0.04 K/mm3 (0.00-0.23); BASOPHILS PERCENT AUTO 0 % (0-2); EOSINOPHILS ABSOLUTE AUTO 0.01 K/mm3 (0.00-0.68); EOSINOPHILS PERCENT AUTO 0 % (0-6); Hematocrit 39.5 % (33.0-51.0); Hemoglobin 13.2 g/dL (11.5-16.0); IMMATURE GRAN ABSOLUTE AUTO 0.57 K/mm3 (0.00-0.10); IMMATURE GRAN PERCENT AUTO 3 % (0-1); LYMPHOCYTES ABSOLUTE AUTO 0.88 K/mm3 (0.84-5.20); LYMPHOCYTES PERCENT AUTO 5 % (21-46); MONOCYTES ABSOLUTE AUTO 0.58 K/mm3 (0.16-1.47); MONOCYTES PERCENT AUTO 3 % (4-13); Mean Corpuscular HGB Conc 33.4 g/dL (31.5-36.5); Mean Corpuscular Volume 90 fL (80-100); NEUTROPHILS ABSOLUTE AUTO 15.60 K/mm3 (1.96-9.15); NEUTROPHILS PERCENT AUTO 88 % (41-73); NRBC ABSOLUTE 0.00 K/mm3 (0.00-0.02); NRBC Auto 0.0 /100 WBC (0.0-0.2); Platelet Count 335 K/mm3 (150-400); RDW Coefficient Variation 14.6 % (11.7-14.2); RDW Standard Deviation 48.6 fL (35.1-46.3)
[2025-03-26 05:47] LABS: Alanine Aminotransfer (ALT/SGP 21.0 U/L (12-78); Albumin, Blood 3.2 g/dL (3.4-5.0); Albumin/Globulin Ratio 0.9 (0.8-1.8); Anion Gap 9.0 mmol/L (3-11); Aspartate Aminotrans (AST/SGOT 16.0 U/L (12-37); Bilirubin, Total 0.5 mg/dL (0.1-1.0); Blood Urea Nitrogen 28.0 mg/dL (8-24); CO2, Blood 23.0 mmol/L (21-32); Calcium, Blood 9.0 mg/dL (8.5-10.1); Chloride, Blood 110.0 mmol/L (98-108); Creatinine, Blood 0.59 mg/dL (0.40-1.00); Globulin, Blood 3.7 g/dL (2.2-4.0); Glucose, Blood 149.0 mg/dL (70-99); Magnesium, Blood 2.3 mg/dL (1.6-2.4); Phosphorus, Blood 3.6 mg/dL (2.5-4.9); Potassium, Blood 4.2 mmol/L (3.5-5.5); Sodium, Blood 138.0 mmol/L (136-145); Total Protein, Blood 6.9 g/dL (6.4-8.2)
[2025-03-26] MEDS ORDERED: NS 250 ML IV PRN (08:45)
--- NOTE | 2025-03-26 10:09 | NUR ---
RN NOTE Ms Peña has been on room air since before breakfast this morning. Sat 91-92% while sitting upright at rest. Strong productive cough. Up independently to the bathroom. Supportive family at bedside. Ms peña is well informed about her medications and medical condition, asks appropriate questions. She denies pain this am. ST on tele running ~120 presently. Up to 140s when she walked into the bathroom. Dr Mathew at bedside and aware of heart rate.
--- NOTE | 2025-03-26 11:34 | NUR ---
RN NOTE Call from [facility] that Ms Shahrzad had 3 second run SVT to 154. She is sitting up in bed, talking on the phone and denied having any symptoms/palpitations. HR 109 currently.
[2025-03-26] MEDS ORDERED: Ipratropium/Albuterol SulF 2.5-0.5MG/3 ML Amp INH ONE (15:00)
[2025-03-26] MEDS ORDERED: Ipratropium/Albuterol SulF 2.5-0.5MG/3 ML Amp INH PRN (15:00)
--- NOTE | 2025-03-26 15:47 | NUR ---
SHIFT SUMMARY Ms Markham had O2 sats in the 90s on room air this morning, At 1130 saturation 88% and she has been on 3L nc since then, 91% on 3L when sleeping flat on her side. She said that she feels generally anxious, questions answered by RN and by MDs, she is well informed on plan of care and verbalises understanding. She accepted atarax this afternoon. Heart rate around 110-120 most of the shift. ST on telemetry with one call from [employer] at 1130 with SVT 154 x 3 seconds with pt asymptomatic. Ms Markham ambulates to the bathroom independently. Bed low, call light in reach. Family at bedside.
[2025-03-27 00:05] VITALS: BP 116/87
[2025-03-27 03:16] VITALS: BP 100/63
[2025-03-27 03:40] LABS: Hematocrit 40.0 % (33.0-51.0); Hemoglobin 13.4 g/dL (11.5-16.0); Mean Corpuscular HGB Conc 33.5 g/dL (31.5-36.5); Mean Corpuscular Volume 91 fL (80-100); NRBC ABSOLUTE 0.04 K/mm3 (0.00-0.02); NRBC Auto 0.3 /100 WBC (0.0-0.2); Platelet Count 329 K/mm3 (150-400); RDW Coefficient Variation 14.3 % (11.7-14.2); RDW Standard Deviation 47.6 fL (35.1-46.3)
[2025-03-27 04:01] LABS: BAND PERCENT MAN 2 % (0-8); BASOPHILS ABSOLUTE MAN 0.00 K/mm3 (0.00-0.23); BASOPHILS PERCENT MAN 0 % (0-2); EOSINOPHILS ABSOLUTE MAN 0.00 K/mm3 (0.00-0.68); EOSINOPHILS PERCENT MAN 0 % (0-6); LYMPHOCYTES ABSOLUTE MAN 0.75 K/mm3 (0.84-5.20); LYMPHOCYTES PERCENT MAN 5 % (21-46); METAMYELOCYTE ABSOLUTE MAN 0.15 K/mm3 (0.00-0.00); METAMYELOCYTE PERCENT MAN 1 % (0-0); MONOCYTES ABSOLUTE MAN 0.60 K/mm3 (0.16-1.47); MONOCYTES PERCENT MAN 4 % (4-13); MYELOCYTE ABSOLUTE MAN 0.60 K/mm3 (0.00-0.00); MYELOCYTE PERCENT MAN 4 % (0-0); NEUTROPHILS ABSOLUTE MAN 13.02 K/mm3 (1.96-9.15); SEG NEUTROPHILS PERCENT MAN 84 % (41-73)
[2025-03-27 04:02] LABS: Anion Gap 10.0 mmol/L (3-11); Blood Urea Nitrogen 31.0 mg/dL (8-24); CO2, Blood 23.0 mmol/L (21-32); Calcium, Blood 8.7 mg/dL (8.5-10.1); Chloride, Blood 111.0 mmol/L (98-108); Creatinine, Blood 0.6 mg/dL (0.40-1.00); Glucose, Blood 154.0 mg/dL (70-99); Magnesium, Blood 2.1 mg/dL (1.6-2.4); Potassium, Blood 4.0 mmol/L (3.5-5.5); Sodium, Blood 140.0 mmol/L (136-145)
--- NOTE | 2025-03-27 04:54 | NUR ---
NOC SHIFT SUMMARY PT IS A+OX4 ABLE TO MAKE NEEDS KNOWN, USES HER CALL LIGHT. SHE IS IDEPENT TO THE BATHROOM, VOIDING W/O DIFFICULTY. TELE IN PLACE SHOWING SINUS TACH AT THIS TIME. SHE WAS HOWEVER SINUS THIAGO FOR SOMETIME DURING THE NIGHT WHILE SLEEPING. PT DENIES CHEST PAIN OR PRESSURE. BP STABLE. NC IN PLACE CURRENTLY WEARING 4L, SHE DOES NOT WEAR O2 AT BASELINE. BREATHING EVEN AND UNLABORED, SHE DOES BECOME SOB W/ MOVEMENT AT TIMES. SHE SHOWERED LAST NIGHT AND HAD HER LIEN CHANGED. NO ACUTE EVENTS TO NOTE. CARE PLAN CONTINUES. BED IN LOWEST POSTION, CALL LIGHT IN REACH.
[2025-03-27] MEDS ORDERED: FURO20 PO (07:35)
[2025-03-27 11:06] VITALS: BP 117/81
[2025-03-27 14:51] VITALS: BP 117/86
[2025-03-27] MEDS ORDERED: HYDHCL25 PO (15:05)
--- NOTE | 2025-03-27 15:53 | NUR ---
Discharge Home Pt A&O x4. VSS. Spo2 > 92% on 2L NC, titrated to RA. Monitor showing SR, HR 90s. Pt denying pain/discomfort. Home o2 eval completed w/ report of pt not qualifying for home o2. Pt expressing readiness to discharge home. w/ order for discharge. Discharge instructions reviewed w/ pt & sent home w/ pt. PIVs removed. Pt taken out in wheelchair w/ belongings @ approx 1500.
== END 2025-03-27 15:00 | disposition home or self-care (01) | DRG 871 ==
LOC: ER 22:51 → ERHOLD 03-25 00:43 → ICUE 03-25 00:43 → PCU 03-25 15:15
PROVIDERS: Emergency Medicine; Student in an Organized Health Care Education/Training Program; ADMIT Internal Medicine
DX: A41.9 Sepsis, unspecified organism (principal); I50.31 Acute diastolic (congestive) heart failure; J18.9 Pneumonia, unspecified organism; J96.01 Acute respiratory failure with hypoxia; J44.1 Chronic obstructive pulmonary disease with (acute) exacerbation; E87.20 Acidosis, unspecified; I11.0 Hypertensive heart disease with heart failure; R00.0 Tachycardia, unspecified; I27.20 Pulmonary hypertension, unspecified; F41.9 Anxiety disorder, unspecified; R59.9 Enlarged lymph nodes, unspecified; I05.2 Rheumatic mitral stenosis with insufficiency; Z87.891 Personal history of nicotine dependence
CPT/HCPCS: 0202U; 36415; 71045; 71046; 71260; 80048; 80053; 80162; 82803; 83605; 83735; 83880; 84100; 84145; 84484; 85025; 85379; 86140; 87081; 87428-QW; 87430; 93005; 93010; 93306; 94640; 94664; 94761; 94762; 96374; 99283-25; 99285-25; A9270; J0456; J0696; J1100; J1650; J1885; J1938; J2919; J3010; J7050; J7060; Q9967